=== PATIENT | male | born 1960 | race Caucasian/White ===

== ENCOUNTER 2018-11-24 13:58 | Inpatient (IN) | payer MEDICAID ==
[~2018-11-24] VITALS: Ht 180.3 cm; Wt 84.0 kg
[2018-11-24 14:10] VITALS: BP_SYST 87
--- NOTE | 2018-11-24 14:15 | NUR ---
Patient presented to ER with C/O black lesion to left internal cheek, S/C burning urination difficulty voiding. Patient A&Ox4, ambulatory to ER, arrived with , saudi arabian speaking only. Patient states he noticed black lesion inside cheek today, pain with urination x5 days. 1.5cm to inside left cheek, PT. denies pain, denies N/V/D. Patient states hx include: Dialysis, heart transplant 2008, HTN, neck blood clots.
--- NOTE | 2018-11-24 14:20 | NUR ---
Placed in room 6. Placed on comb machine operator, blood pressure machine and pulse oximeter. To gown for exam. Side rails up.
--- NOTE | 2018-11-24 14:25 | NUR ---
Patient placed on oxygen via NC per patient request
--- NOTE | 2018-11-24 14:35 | NUR ---
ER Dr. Martinez at bedside examining patient.
[2018-11-24] MEDS ORDERED: MIDO10TA PO (14:45)
[2018-11-24] MEDS ORDERED: ISMO20 PO (14:45)
[2018-11-24] MEDS ORDERED: MAGN400T10 PO (14:45)
[2018-11-24] MEDS ORDERED: LEVO25TA7 PO (14:45)
[2018-11-24] MEDS ORDERED: VITD400 PO (14:45)
[2018-11-24] MEDS ORDERED: TACR1CAP PO (14:45)
[2018-11-24] MEDS ORDERED: ESOM10SU PO (14:45)
[2018-11-24] MEDS ORDERED: ZOLP10TA6 PO (14:45)
[2018-11-24] MEDS ORDERED: FERR325T30 PO (14:45)
[2018-11-24] MEDS ORDERED: FEBU80TA PO (14:45)
[2018-11-24] MEDS ORDERED: LIP20 PO (14:45)
[2018-11-24] MEDS ORDERED: APIX5TAB4 PO (14:45)
[2018-11-24] MEDS ORDERED: OXYC-580 PO (14:45)
[2018-11-24] MEDS ORDERED: CALC667T5 PO (14:45)
[2018-11-24] MEDS ORDERED: DOCU250C14 PO (14:45)
[2018-11-24] MEDS ORDERED: EVER0.75 PO (14:45)
[2018-11-24] MEDS ORDERED: SERT50TA12 PO (14:45)
[2018-11-24] MEDS ORDERED: SENN8.6T19 PO (14:45)
[2018-11-24] MEDS ORDERED: FOLI-43 PO (14:45)
--- NOTE | 2018-11-24 14:46 | NUR ---
Medication reconciliation completed with information provided by list of medications provided by . Any prior medication reconciliation on file was reviewed and corrected.
[2018-11-24 15:14] LABS: BASOPHILS # (AUTO) 0.1 K/uL (0.0-0.2); BASOPHILS % (AUTO) 0.8 % (0.0-2.0); EOSINOPHILS # (AUTO) 0.2 K/uL (0.0-0.4); EOSINOPHILS % (AUTO) 2.2 % (0.0-4.0); HEMATOCRIT 37.1 % (36-54); HEMOGLOBIN 11.5 g/dL (14.0-18.0); LYMPHOCYTES # (AUTO) 0.6 K/uL (1.0-5.5); LYMPHOCYTES % (AUTO) 7.8 % (20.5-51.5); MEAN CORPUSCULAR HEMOGLOBIN 23 pg (27-31); MEAN CORPUSCULAR HGB CONC 31 % (32-36); MEAN CORPUSCULAR VOLUME 75 fL (79.0-98.0); MONOCYTES % (AUTO) 12.8 % (1.7-9.3); NEUTROPHILS # (AUTO) 5.7 K/uL (1.8-7.7); NEUTROPHILS % (AUTO) 76.4 % (40.0-70.0); PLATELET COUNT (AUTO) 159 K/uL (130-430); RED BLOOD CELL COUNT(AUTO) 4.96 MIL/uL (4.2-6.2); RED CELL DISTRIBUTION WIDTH 25.1 % (9.0-15.0); WHITE BLOOD COUNT (AUTO) 7.5 K/uL (4.8-10.8)
--- NOTE | 2018-11-24 15:14 | NUR ---
Radiology staff at bedside for portable x-ray
--- NOTE | 2018-11-24 15:30 | NUR ---
Report to Yuki URIOSTEGUI
[2018-11-24 15:32] LABS: INR 1.1 (0.80-1.20)
[2018-11-24 15:33] LABS: CREATININE 4.42 mg/dL (0.55-1.30); POTASSIUM 3.2 mmol/L (3.5-5.1)
[2018-11-24 15:35] LABS: BILIRUBIN,URINE 2+ (NEGATIVE); BLOOD, URINE 1+ (NEGATIVE); CLARITY/URINE HAZY (CLEAR); COLOR,URINE YELLOW (YELLOW); GLUCOSE,URINE NEGATIVE (NEGATIVE); KETONES,URINE 1+ (NEGATIVE); LEUKOCYTE ESTERASE ,URINE TRACE (NEGATIVE); NITRITE, URINE POSITIVE (NEGATIVE); PROTEIN URINE 2+ (NEGATIVE)
--- NOTE | 2018-11-24 15:35 | NUR ---
Patient resting comfortably on gurney. No acute distress noted at this time.
[2018-11-24 15:38] LABS: ALBUMIN 2.9 g/dL (3.4-4.8); TOTAL BILIRUBIN 0.5 mg/dL (0.0-1.0)
--- NOTE | 2018-11-24 16:12 | NUR ---
End of life care decisions discussed with patient by Dr. Martinez. Opportunity for questions and concerns addressed. Patient's code status is FULL CODE, paperwork completed and placed in chart.
[2018-11-24 16:30] LABS: MUCUS,URINE None Seen /LPF (None Seen); RBC,URINE 0-3 /HPF (0-3)
[2018-11-24 16:32] LABS: BACTERIA,URINE MODERATE /HPF (None Seen); URINE AMORPHOUS URATE 2+ /HPF (None Seen)
[2018-11-24] MEDS ORDERED: DOCUSATE SODIUM 250 MG CAPSULE PO PRN (17:00)
[2018-11-24] MEDS ORDERED: oxyCODONE HCL 5 MG TABLET PO PRN (17:00)
--- NOTE | 2018-11-24 17:03 | NUR ---
Patient will be admitted to care of DR. GRADY. Admitted to TELEMETRY unit. Will go to room 135. Summary report printed. Report will be given at bedside.
[2018-11-24] MEDS ORDERED: POTASSIUM CHLORIDE 20 MEQ/PKT PACKET PO ONE (17:30)
--- NOTE | 2018-11-24 17:35 | NUR ---
Routine Patient transferred to unit in stable condition. at bedside.
[2018-11-24 17:40] VITALS: BP_SYST 96
--- NOTE | 2018-11-24 18:00 | NUR ---
Nephro consult called: for Dr. Perez (Dr. Mathew security control assessor), regarding ESRD and CHF, ordered by Dr. Holder, spoke with Katrina.
--- NOTE | 2018-11-24 18:04 | NUR ---
Ina consult called: for Dr. Weir (Dr. Carr telephone betting clerk), regarding s/p heart transplant, ordered by Dr. Holder, spoke with Asiya.
[2018-11-24] MEDS: CALCIUM ACETATE 667 MG CAP PO SCH (18:43)
[2018-11-24] MEDS: cefTRIAXone 1 GM in D5W 50 ML IV SCH (18:43)
--- NOTE | 2018-11-24 19:30 | NUR ---
Bedside report obtained from day shift nurse. Pt is fully awake and alert. No c/o pain or discomfort and no acute distress noted at this time. Saline lock in LFA is without any signs of infiltration. Fall and safety precautions are in place. Call light is with pt and bed alarm is on. Pt was instructed to call for assistance as needed and pt verbalized understanding.
[2018-11-24 20:00] VITALS: BP_SYST 118
[2018-11-24] MEDS ORDERED: cefTRIAXone 1 GM in D5W 50 ML IV SCH (20:00)
[2018-11-24] MEDS: SENNOSIDES 8.6 MG TABLET PO SCH (20:17)
[2018-11-24] MEDS: TACROLIMUS ANHYDROUS 0.5 MG CAPSULE (PROGRAF) PO SCH (20:18)
[2018-11-24] MEDS: ATORVASTATIN 20 MG TABLET PO SCH (20:20)
[2018-11-24] MEDS: MAGNESIUM CHLORIDE 64 MG TABLET.DR PO SCH (20:20)
--- NOTE | 2018-11-24 20:20 | NUR ---
Pt c/o pain in both legs. Oxycodone IR 7.5mg was given po.
[2018-11-24] MEDS: APIXABAN 2.5 MG TABLET PO SCH (20:22)
[2018-11-24] MEDS ORDERED: ISOSORBIDE MONONITRATE 30 MG TAB.ER.24H PO SCH (21:00)
[2018-11-24] MEDS: ZORTRESS 0.75 MG PO SCH (21:00)
[2018-11-24] MEDS: ZOLPIDEM TARTRATE 5 MG TABLET PO PRN (22:40)
--- NOTE | 2018-11-24 22:40 | NUR ---
Pt c/o difficulty sleeping and requested a sleeping pill. Ambien 10mg was given po as ordered by .
[2018-11-24 23:49] LABS: URIC ACID 2.5 mg/dL (2.4-7.0)
--- NOTE | 2018-11-25 00:01 | NUR ---
Elevated Troponin of 0.[address] Carr and no new orders given. Dr. Carr stated Dr. Weir will see pt in AM. Pt is asymptomatic. electrical lineman is showing SR.
[2018-11-25 01:04] VITALS: BP_SYST 100
--- NOTE | 2018-11-25 02:00 | NUR ---
Pt is seeping without any distress noted. Fall and safety precautions are in place.
--- NOTE | 2018-11-25 04:00 | NUR ---
Pt is seeping comfortably in bed without any distress noted. Fall and safety precautions are in place.
[2018-11-25] MEDS: LEVOTHYROXINE SODIUM 0.075 MG TABLET PO SCH (06:19)
--- NOTE | 2018-11-25 06:34 | NUR ---
Pt is awake and resting comfortably in bed. Call light is with pt and bed is in the lowest and locked positions. All pt's needs were attended to. Will endorse to day shift nurse.
[2018-11-25 08:00] VITALS: BP_SYST 103
--- NOTE | 2018-11-25 08:00 | NUR ---
OPENING NOTE: RECEIVED REPORT FROM NOC RN. PATIENT IS RESTING IN BED WITH HOB ELEVATED. PATIENT IS RESTING WITH EYES CLOSED, AROUSABLE TO VERBAL RESPONSE. PATIENT IS ON 2L O2 NC AND SATURATING WITHIN NORMAL LIMITS. NO ACUTE SIGNS OF RESP DISTRESS, NO SOB. BREATHING EVEN AND UNLABORED. IV INTACT AND PATENT, NO REDNESS/SWELLING TO SITE. ALL NEEDS MET AT THIS TIME. BED AT LOWEST POSITION, CALL LIGHT IN REACH. CONTINUE TO MONITOR.
[2018-11-25 08:18] LABS: BASOPHILS # (AUTO) 0.2 K/uL (0.0-0.2); BASOPHILS % (AUTO) 2.5 % (0.0-2.0); EOSINOPHILS # (AUTO) 0.2 K/uL (0.0-0.4); EOSINOPHILS % (AUTO) 2.7 % (0.0-4.0); HEMOGLOBIN 11.1 g/dL (14.0-18.0); LYMPHOCYTES # (AUTO) 0.7 K/uL (1.0-5.5); LYMPHOCYTES % (AUTO) 9.3 % (20.5-51.5); MEAN CORPUSCULAR HEMOGLOBIN 23 pg (27-31); MEAN CORPUSCULAR HGB CONC 31 % (32-36); MEAN CORPUSCULAR VOLUME 76 fL (79.0-98.0); MONOCYTES % (AUTO) 13.8 % (1.7-9.3); NEUTROPHILS # (AUTO) 5.5 K/uL (1.8-7.7); NEUTROPHILS % (AUTO) 71.7 % (40.0-70.0); PLATELET COUNT (AUTO) 144 K/uL (130-430); RED BLOOD CELL COUNT(AUTO) 4.76 MIL/uL (4.2-6.2); RED CELL DISTRIBUTION WIDTH 26.1 % (9.0-15.0); WHITE BLOOD COUNT (AUTO) 7.6 K/uL (4.8-10.8)
[2018-11-25 08:33] LABS: ALBUMIN 2.7 g/dL (3.4-4.8); CALCIUM 8.8 mg/dL (8.4-11.0); CREATININE 5.2 mg/dL (0.55-1.30); POTASSIUM 4.5 mmol/L (3.5-5.1); TOTAL BILIRUBIN 0.5 mg/dL (0.0-1.0)
[2018-11-25] MEDS: FOLIC ACID 1 MG TABLET PO SCH (08:42)
[2018-11-25] MEDS: PANTOPRAZOLE SODIUM 40 MG TAB PO SCH (08:42)
[2018-11-25] MEDS: TACROLIMUS ANHYDROUS 0.5 MG CAPSULE (PROGRAF) PO SCH ×2 (08:42→21:31)
[2018-11-25] MEDS: CALCIUM ACETATE 667 MG CAP PO SCH ×3 (08:42→17:06)
[2018-11-25] MEDS: CHOLECALCIFEROL (VITAMIN D-3) 400 UNIT TABLET PO SCH (08:42)
[2018-11-25] MEDS: MAGNESIUM CHLORIDE 64 MG TABLET.DR PO SCH ×3 (08:42→21:31)
[2018-11-25] MEDS: SENNOSIDES 8.6 MG TABLET PO SCH ×2 (08:42→21:31)
[2018-11-25] MEDS: SERTRALINE HCL 50 MG TABLET PO SCH (08:42)
[2018-11-25] MEDS: APIXABAN 2.5 MG TABLET PO SCH ×2 (08:43→21:35)
[2018-11-25] MEDS: ZORTRESS 0.75 MG PO SCH ×2 (09:00→21:33)
[2018-11-25] MEDS ORDERED: MIDODRINE HCL 5 MG TABLET (PROAMATINE) PO SCH (09:00)
[2018-11-25] MEDS ORDERED: MIDODRINE HCL 5 MG TABLET (PROAMATINE) PO ONE (10:00)
--- NOTE | 2018-11-25 12:00 | NUR ---
ROUNDING: NO CHANGE IN STATUS. ALL NEEDS MET. CONTINUE TO MONITOR.
[2018-11-25 12:34] VITALS: BP_SYST 118
[2018-11-25 13:01] LABS: SOURCE/TYPE ,BODY FLUID PLEURAL
[2018-11-25 13:02] LABS: BF APPEARANCE UNSPUN HAZY (CLEAR); BODY FLUID COLOR YELLOW (LT YELLOW); BODY FLUID SOURCE/ TYPE PLEURAL; BODY FLUID TOTAL VOLUME 1675 mL
[2018-11-25 14:02] LABS: LYMPHOCYTES, BODY FLUID 63 %; RBC, BODY FLUID 603 /uL; WBC, BODY FLUID 214 /uL
[2018-11-25 14:03] LABS: MONOCYTES,BODY FLUID 7 %
[2018-11-25 16:30] VITALS: BP_SYST 101
[2018-11-25] MEDS: cefTRIAXone 1 GM in D5W 50 ML IV SCH (17:06)
--- NOTE | 2018-11-25 19:00 | NUR ---
CLOSING NOTE: PATIENT LAYING IN BED WITH HOB ELEVATED. AAOX4, VERBALLY RESPONSIVE WITH CLEAR SPEECH. PATIENT IS ON 2L O2 NC AND SATURATING WITHIN NORMAL LIMITS. NO ACUTE SIGNS OF RESP DISTRESS, NO SOB. BREATHING EVEN AND UNLABORED. IV INTACT AND PATENT, NO REDNESS/SWELLING/PAIN TO SITE. BED AT LOWEST POSITION, CALL LIGHT IN REACH. WILL ENDORSE PLAN OF CARE TO NOC RN.
--- NOTE | 2018-11-25 19:15 | NUR ---
Pt was received lying in bed sleeping without any distress noted. O2 is on at 2L/min per NC. Pt's is sitting at the bedside. Saline lock in LFA is without any signs of infiltration. Fall and safety precautions are in place. Call light is with pt and bed is in the lowest and locked positions.
[2018-11-25 19:16] LABS: BODY FLUID GLUCOSE 96 mg/dL
[2018-11-25 20:00] VITALS: BP_SYST 104
[2018-11-25] MEDS: MIDODRINE HCL 5 MG TABLET (PROAMATINE) PO SCH (21:30)
--- NOTE | 2018-11-25 21:30 | NUR ---
Pt is resting quietly in bed. No c/o pain or discomfort. Fall and safety precautions are in place.
[2018-11-25] MEDS: ATORVASTATIN 20 MG TABLET PO SCH (21:31)
[2018-11-25] MEDS: ZOLPIDEM TARTRATE 5 MG TABLET PO PRN (23:51)
--- NOTE | 2018-11-25 23:51 | NUR ---
Ambien 10mg was given po per pt's request for c/o insomnia. Call light is with pt and bed is in the lowest and locked positions. Pt was instructed to call for assistance as needed and pt verbalized understanding.
[2018-11-26] VITALS: BP_SYST 103
--- NOTE | 2018-11-26 02:30 | NUR ---
Pt is seeping comfortably in bed without any distress noted. Fall and safety precautions are in place.
--- NOTE | 2018-11-26 04:30 | NUR ---
Pt is sleeping without any distress noted. Fall and safety precautions are in place.
[2018-11-26] MEDS: LEVOTHYROXINE SODIUM 0.075 MG TABLET PO SCH (06:18)
[2018-11-26 06:38] LABS: CALCIUM 9.2 mg/dL (8.4-11.0); CREATININE 6.14 mg/dL (0.55-1.30); POTASSIUM 4.4 mmol/L (3.5-5.1); THYROID STIMULATING HORMONE 2.1 uIu/mL (0.34-4.82)
--- NOTE | 2018-11-26 06:49 | NUR ---
Pt is awake and resting comfortably in bed. All pt's needs were attended to. IV site in LFA is without any signs of infiltration. Will endorse to day shift nurse.
--- NOTE | 2018-11-26 07:10 | NUR ---
sbar report received at the bedside. patient aaox 4. speaks chinese and understood bit of icelandic. ambulatory. breathing even and unlabored. has oxygen at 2lnc. abdomen soft and non distended. has iv access on the left forearm #20 saline lock dry/intact. has left upper chest permacath in placed. dry/intact. no skin breakdown noted. bed low position, locked and alarmed. call lights within reach. instructed to call for assistance. still with school lunch monitor in placed sinus rththm 80. no pain nor acute distress noted.
[2018-11-26 07:44] VITALS: BP_SYST 123
[2018-11-26 08:04] LABS: HEMATOCRIT 38.2 % (36-54); HEMOGLOBIN 11.7 g/dL (14.0-18.0); MEAN CORPUSCULAR HEMOGLOBIN 23 pg (27-31); MEAN CORPUSCULAR HGB CONC 31 % (32-36); MEAN CORPUSCULAR VOLUME 75 fL (79.0-98.0); PLATELET COUNT (AUTO) 170 K/uL (130-430); RED BLOOD CELL COUNT(AUTO) 5.07 MIL/uL (4.2-6.2); RED CELL DISTRIBUTION WIDTH 24.9 % (9.0-15.0); WHITE BLOOD COUNT (AUTO) 8.3 K/uL (4.8-10.8)
--- NOTE | 2018-11-26 08:30 | NUR ---
assisted to the bathroom. continue to monitor patients status.
--- NOTE | 2018-11-26 09:00 | NUR ---
medication due given. made comfortable.
[2018-11-26] MEDS: MIDODRINE HCL 5 MG TABLET (PROAMATINE) PO SCH (09:16)
[2018-11-26] MEDS: CALCIUM ACETATE 667 MG CAP PO SCH (09:16)
[2018-11-26] MEDS: PANTOPRAZOLE SODIUM 40 MG TAB PO SCH (09:17)
[2018-11-26] MEDS: SENNOSIDES 8.6 MG TABLET PO SCH (09:17)
[2018-11-26] MEDS: SERTRALINE HCL 50 MG TABLET PO SCH (09:17)
[2018-11-26] MEDS: FOLIC ACID 1 MG TABLET PO SCH (09:17)
[2018-11-26] MEDS: APIXABAN 2.5 MG TABLET PO SCH (09:20)
[2018-11-26] MEDS: TACROLIMUS ANHYDROUS 0.5 MG CAPSULE (PROGRAF) PO SCH (09:24)
[2018-11-26] MEDS: MAGNESIUM CHLORIDE 64 MG TABLET.DR PO SCH (09:27)
[2018-11-26] MEDS: CHOLECALCIFEROL (VITAMIN D-3) 400 UNIT TABLET PO SCH (09:27)
[2018-11-26] MEDS: ZORTRESS 0.75 MG PO SCH (09:31)
[2018-11-26] MEDS ORDERED: ALBUMIN HUMAN 25% 100 ML IV ONE (09:45)
--- NOTE | 2018-11-26 10:00 | NUR ---
had dialysis procedure scheduled today.
[2018-11-26 11:18] VITALS: BP_SYST 110
[2018-11-26 12:17] LABS: BAND % (MANUAL) 2 % (0-6); BASOPHILS % (MANUAL) 0 % (0-2); EOSINOPHILS % (MANUAL) 2 % (0-7); LYMPHOCYTES % (MANUAL) 13 % (20-46); MONOCYTES % (MANUAL) 18 % (0-11)
--- NOTE | 2018-11-26 12:30 | NUR ---
had lunch tray at the bedside. made comfortable.
--- NOTE | 2018-11-26 15:04 | NUR ---
patient resting at the bedside. no complained at this time.
[2018-11-26 15:18] LABS: NEUTROPHIL, BODY FLUID 30 %
--- NOTE | 2018-11-26 15:46 | NUR ---
awaiting for dr silvestre to come and see the patient.
--- NOTE | 2018-11-26 17:14 | NUR ---
dr silvestre came and discharge patient. no prescription given. continue home previous medication and see the pcp, wireless telegrapher and photographer news.
[2018-11-26 17:24] VITALS: BP_SYST 128
[2018-11-26 17:30] VITALS: BP_SYST 128
--- NOTE | 2018-11-26 18:00 | NUR ---
monitor tech removed. scdh i d band and iv access removed. patient has left chest permacath. dry/intact.
--- NOTE | 2018-11-26 18:15 | NUR ---
instructed regarding the care of permacath for dialysis. estephania and patient understands.
--- NOTE | 2018-11-26 18:24 | NUR ---
patient left in juan condition via wheelchair. accompanied by Jojo Muñoz and named Chayito. discharged instruction given and explained one by one the medication and each indication, dosages, frequency and sidie effects. return follow up with primary care doctor and senior label specialist and tongue and quarter stitcher md. discharge instruction signed and given a copy.
--- NOTE | 2018-11-26 18:24 | NUR ---
left in stable condition. vitals signs stable and afebrile.
== END 2018-11-26 18:24 | disposition home or self-care (01) | DRG 194 ==
LOC: SED 13:58 → STU 16:51
PROVIDERS: ADMIT Internal Medicine; ATTEND Internal Medicine
PROC: 0W993ZZ Drainage of Right Pleural Cavity, Percutaneous Approach (ICD-10-PCS; principal; 2018-11-24)
PROC: 5A1D70Z Performance of Urinary Filtration, Intermittent, Less than 6 Hours Per Day (ICD-10-PCS; 2018-11-26)
DX: I13.2 Hypertensive heart and chronic kidney disease with heart failure and with stage 5 chronic kidney disease, or end stage renal disease (principal); J91.8 Pleural effusion in other conditions classified elsewhere; Z94.1 Heart transplant status; N18.6 End stage renal disease; I42.0 Dilated cardiomyopathy; E44.1 Mild protein-calorie malnutrition; K72.90 Hepatic failure, unspecified without coma; K74.60 Unspecified cirrhosis of liver; E78.5 Hyperlipidemia, unspecified; G89.4 Chronic pain syndrome; D64.9 Anemia, unspecified; I50.43 Acute on chronic combined systolic (congestive) and diastolic (congestive) heart failure; I34.0 Nonrheumatic mitral (valve) insufficiency; M10.9 Gout, unspecified; N39.0 Urinary tract infection, site not specified; Z79.01 Long term (current) use of anticoagulants; Z82.49 Family history of ischemic heart disease and other diseases of the circulatory system; Z86.711 Personal history of pulmonary embolism; Z87.891 Personal history of nicotine dependence; Z99.2 Dependence on renal dialysis; Z79.899 Other long term (current) drug therapy; Z68.25 Body mass index [BMI] 25.0-25.9, adult
CPT/HCPCS: 32555; 36415; 71045; 80048; 80053; 80061; 81000-TC; 82947-TC; 83605; 83880; 84157-TC; 84443-TC; 84484; 84550-TC; 85007; 85025; 85027; 85610-TC; 85730-TC; 87040-TC; 87070-TC; 87081; 87086; 87116; 88108; 88305; 89051-TC; 89060-TC; 90935; 93005; 93306; 99291; C1729; G0378; J0696; J7030; J7050; J7060; J7507

== ENCOUNTER 2018-12-07 00:49 | Inpatient (IN) | payer MEDICAID ==
[2018-12-07] VITALS (7 sets, daily range): BP systolic 100–119
[~2018-12-07] VITALS: Ht 180.3 cm; Wt 83.0 kg
[~2018-12-07 00:49] MED LIST: APIX5TAB4 PO; CALC667T5 PO; DOCU250C14 PO; ESOM10SU PO; EVER0.75 PO; FEBU80TA PO; FERR325T30 PO; FOLI-43 PO; LEVO25TA7 PO; LIP20 PO; MAGN400T10 PO; MIDO10TA PO; OXYC-580 PO; SENN8.6T19 PO; SERT50TA12 PO; TACR1CAP PO; VITD400 PO; ZOLP10TA6 PO
[2018-12-07] MEDS ORDERED: IPRATROPIUM/ALBUTEROL SULFATE 3 ML AMPUL.NEB (DUONEB) INH ONE (01:15)
[2018-12-07] MEDS ORDERED: FUROSEMIDE 100 MG/10 ML VIAL IVP ONE (01:15)
[2018-12-07] MEDS ORDERED: FURO80TA86 PO (01:27)
[2018-12-07] MEDS ORDERED: ISOS30TA6 PO (01:28)
[2018-12-07] MEDS ORDERED: MAGN27TA2 PO (01:32)
[2018-12-07] MEDS ORDERED: FEBU40TA PO (01:33)
[2018-12-07 02:08] LABS: BASOPHILS # (AUTO) 0.1 K/uL (0.0-0.2); EOSINOPHILS # (AUTO) 0.2 K/uL (0.0-0.4); EOSINOPHILS % (AUTO) 2.3 % (0.0-4.0); HEMOGLOBIN 12.1 g/dL (14.0-18.0); LYMPHOCYTES # (AUTO) 0.7 K/uL (1.0-5.5); NEUTROPHILS # (AUTO) 5.6 K/uL (1.8-7.7); PLATELET COUNT (AUTO) 117 K/uL (130-430); RED CELL DISTRIBUTION WIDTH 26.1 % (9.0-15.0)
[2018-12-07 02:09] LABS: INR 1.1 (0.80-1.20); PROTHROMBIN TIME 11.1 SECS (9.5-12.5)
[2018-12-07] MEDS ORDERED: DOXYCYCLINE HYCLATE 100 MG CAPSULE PO ONE (02:30)
[2018-12-07 02:35] LABS: BASOPHILS % (AUTO) 1.4 % (0.0-2.0); CALCIUM 8.5 mg/dL (8.4-11.0); CREATININE 6.34 mg/dL (0.55-1.30); HEMATOCRIT 38.9 % (36-54); LYMPHOCYTES % (AUTO) 9.6 % (20.5-51.5); MEAN CORPUSCULAR HEMOGLOBIN 24 pg (27-31); MEAN CORPUSCULAR HGB CONC 31 % (32-36); MEAN CORPUSCULAR VOLUME 77 fL (79.0-98.0); MONOCYTES # (AUTO) 0.8 K/uL (0.0-1.0); MONOCYTES % (AUTO) 11.3 % (1.7-9.3); NEUTROPHILS % (AUTO) 75.4 % (40.0-70.0); POTASSIUM 3.8 mmol/L (3.5-5.1); RED BLOOD CELL COUNT(AUTO) 5.05 MIL/uL (4.2-6.2); WHITE BLOOD COUNT (AUTO) 7.4 K/uL (4.8-10.8)
[2018-12-07 02:40] LABS: ALBUMIN 2.6 g/dL (3.4-4.8); TOTAL BILIRUBIN 0.5 mg/dL (0.0-1.0)
[2018-12-07] MEDS ORDERED: DOXYCYCLINE HYCLATE 100 MG CAPSULE ONE (02:56)
[2018-12-07] MEDS ORDERED: NITROGLYCERIN 0.4 MG TAB.SUBL SL ONE (03:00)
[2018-12-07] MEDS ORDERED: DOCUSATE SODIUM 100 MG/10 ML UDC PO PRN (03:15)
[2018-12-07] MEDS ORDERED: HYDROcodone/ACETAMIN 7.5-325 MG TAB PO PRN (03:15)
[2018-12-07] MEDS ORDERED: ACETAMINOPHEN 500 MG TABLET PO PRN (03:15)
[2018-12-07] MEDS ORDERED: KETOROLAC TROMETHAMINE 30 MG VIAL IVP ONE (03:15)
[2018-12-07] MEDS ORDERED: ONDANSETRON HCL 4 MG/2 ML VIAL IVP PRN (03:15)
[2018-12-07] MEDS ORDERED: MORPHINE 2 MG/ML INJ. SYRINGE IVP PRN (03:15)
[2018-12-07] MEDS ORDERED: ZOLPIDEM TARTRATE 5 MG TABLET PO PRN (03:30)
[2018-12-07] MEDS ORDERED: HEPARIN SODIUM,PORCINE 5000 UNITS/ML VIAL SUBCUT ONE (03:30)
[2018-12-07] MEDS ORDERED: NITROGLYCERIN 0.4 MG TAB.SUBL SL PRN (03:30)
[2018-12-07] MEDS ORDERED: IPRATROPIUM/ALBUTEROL SULFATE 3 ML AMPUL.NEB (DUONEB) INH PRN ×2 (03:45→06:15)
[2018-12-07] MEDS: LEVOTHYROXINE SODIUM 0.075 MG TABLET PO SCH (06:58)
[2018-12-07] MEDS: IPRATROPIUM/ALBUTEROL SULFATE 3 ML AMPUL.NEB (DUONEB) INH SCH ×5 (07:09→23:55)
[2018-12-07 07:10] LABS: FREE T4 (FREE THYROXINE) 0.9 ng/dl (0.8-1.5); PHOSPHORUS 5.6 mg/dL (2.7-4.5); THYROID STIMULATING HORMONE 3.38 uIu/mL (0.36-3.74)
[2018-12-07] MEDS: ASPIRIN 81 MG TAB.CHEW PO SCH (09:00)
[2018-12-07] MEDS: APIXABAN 2.5 MG TABLET PO SCH ×2 (09:00→21:00)
[2018-12-07] MEDS: FOLIC ACID 1 MG TABLET PO SCH (10:15)
[2018-12-07] MEDS: SERTRALINE HCL 50 MG TABLET PO SCH (10:15)
[2018-12-07] MEDS: PANTOPRAZOLE SODIUM 40 MG TAB PO SCH (10:15)
[2018-12-07] MEDS ORDERED: NON-FORMULARY MEDICATION (Febuxostat (Uloric) 40 MG) PO SCH (11:15)
[2018-12-07] MEDS: TACROLIMUS ANHYDROUS 0.5 MG CAPSULE (PROGRAF) PO SCH ×2 (12:06→20:56)
[2018-12-07] MEDS: [UNRECOGNIZED DRUG - OTHER] PO SCH ×2 (12:06→20:57)
[2018-12-07 14:30] LABS: BODY FLUID SOURCE/ TYPE PLEURAL; SOURCE/TYPE ,BODY FLUID PLEURAL
[2018-12-07 14:31] LABS: APPEARANCE,SPUN,BODY FLUID HAZY (CLEAR)
[2018-12-07 14:32] LABS: BF APPEARANCE UNSPUN HAZY (CLEAR); BODY FLUID COLOR LT YELLOW (LT YELLOW); BODY FLUID TOTAL VOLUME 1750 mL
[2018-12-07 14:33] LABS: LYMPHOCYTES, BODY FLUID 42 %; NEUTROPHIL, BODY FLUID 58 %; RBC, BODY FLUID 161 /uL; WBC, BODY FLUID 64 /uL
[2018-12-07] MEDS: PIPERACILLIN/TAZO 2.25G/DEX-IS 50 ML IV SCH ×2 (14:41→20:57)
[2018-12-07 14:50] LABS: TOTAL IRON BIND. CAPACITY 254 ug/dL (250-450)
[2018-12-07 17:41] LABS: BODY FLUID GLUCOSE 113 mg/dL; BODY FLUID TOTAL PROTEIN 2.4 g/dL
[2018-12-07] MEDS: ATORVASTATIN 20 MG TABLET PO SCH (20:56)
[2018-12-08 00:22] VITALS: BP_SYST 97
[2018-12-08] MEDS: IPRATROPIUM/ALBUTEROL SULFATE 3 ML AMPUL.NEB (DUONEB) INH SCH ×6 (03:00→23:35)
[2018-12-08] MEDS: PIPERACILLIN/TAZO 2.25G/DEX-IS 50 ML IV SCH ×3 (05:51→22:46)
[2018-12-08] MEDS: LEVOTHYROXINE SODIUM 0.075 MG TABLET PO SCH (05:52)
[2018-12-08 07:11] LABS: CALCIUM 8.7 mg/dL (8.4-11.0); PHOSPHORUS 7.1 mg/dL (2.7-4.5); POTASSIUM 4.1 mmol/L (3.5-5.1)
[2018-12-08 07:14] LABS: CREATININE 7.69 mg/dL (0.55-1.30)
[2018-12-08 07:28] LABS: HEMATOCRIT 39.5 % (36-54); HEMOGLOBIN 12.1 g/dL (14.0-18.0); MEAN CORPUSCULAR HEMOGLOBIN 24 pg (27-31); MEAN CORPUSCULAR HGB CONC 31 % (32-36); MEAN CORPUSCULAR VOLUME 78 fL (79.0-98.0); PLATELET COUNT (AUTO) 98 K/uL (130-430); RED BLOOD CELL COUNT(AUTO) 5.09 MIL/uL (4.2-6.2); RED CELL DISTRIBUTION WIDTH 25.9 % (9.0-15.0); WHITE BLOOD COUNT (AUTO) 6.2 K/uL (4.8-10.8)
[2018-12-08] MEDS: PANTOPRAZOLE SODIUM 40 MG TAB PO SCH (08:20)
[2018-12-08] MEDS: ASPIRIN 81 MG TAB.CHEW PO SCH (08:20)
[2018-12-08] MEDS: SERTRALINE HCL 50 MG TABLET PO SCH (08:20)
[2018-12-08] MEDS: APIXABAN 2.5 MG TABLET PO SCH ×2 (08:22→20:36)
[2018-12-08] MEDS: FOLIC ACID 1 MG TABLET PO SCH (08:23)
[2018-12-08] MEDS: [UNRECOGNIZED DRUG - OTHER] PO SCH ×2 (08:23→20:40)
[2018-12-08] MEDS: TACROLIMUS ANHYDROUS 0.5 MG CAPSULE (PROGRAF) PO SCH ×2 (08:23→20:39)
[2018-12-08] MEDS: MIDODRINE HCL 5 MG TABLET (PROAMATINE) PO PRN (09:25)
[2018-12-08 09:39] LABS: BASOPHILS % (MANUAL) 0 % (0-2); EOSINOPHILS % (MANUAL) 2 % (0-7); LYMPHOCYTES % (MANUAL) 12 % (20-46); MONOCYTES % (MANUAL) 9 % (0-11)
[2018-12-08] MEDS ORDERED: ALTEPLASE 2 MG VIAL MC ONE (10:15)
[2018-12-08] MEDS ORDERED: HEPARIN SODIUM,PORCINE 5000 UNITS/ML VIAL MC ONE (10:15)
[2018-12-08 10:57] VITALS: BP_SYST 108
[2018-12-08 12:00] VITALS: BP_SYST 100
[2018-12-08 15:15] LABS: FOLATE (FOLIC ACID) >20.0 ng/mL (>3.0)
[2018-12-08 15:22] VITALS: BP_SYST 110
[2018-12-08 20:00] VITALS: BP_SYST 99
[2018-12-08] MEDS: ATORVASTATIN 20 MG TABLET PO SCH (20:35)
[2018-12-08 22:54] VITALS: BP_SYST 100
[2018-12-09 01:10] VITALS: BP_SYST 91
[2018-12-09] MEDS: IPRATROPIUM/ALBUTEROL SULFATE 3 ML AMPUL.NEB (DUONEB) INH SCH ×4 (03:00→15:00)
[2018-12-09] MEDS: LEVOTHYROXINE SODIUM 0.075 MG TABLET PO SCH (06:26)
[2018-12-09] MEDS: PIPERACILLIN/TAZO 2.25G/DEX-IS 50 ML IV SCH (06:26)
[2018-12-09] MEDS: FOLIC ACID 1 MG TABLET PO SCH (09:12)
[2018-12-09] MEDS: TACROLIMUS ANHYDROUS 0.5 MG CAPSULE (PROGRAF) PO SCH (09:12)
[2018-12-09] MEDS: PANTOPRAZOLE SODIUM 40 MG TAB PO SCH (09:12)
[2018-12-09] MEDS: SERTRALINE HCL 50 MG TABLET PO SCH (09:13)
[2018-12-09] MEDS: ASPIRIN 81 MG TAB.CHEW PO SCH (09:13)
[2018-12-09] MEDS: APIXABAN 2.5 MG TABLET PO SCH (09:16)
[2018-12-09] MEDS: [UNRECOGNIZED DRUG - OTHER] PO SCH (09:17)
[2018-12-09] MEDS: MIDODRINE HCL 5 MG TABLET (PROAMATINE) PO PRN (10:32)
[2018-12-09 12:22] VITALS: BP_SYST 99
[2018-12-09] MEDS ORDERED: HEPARIN SODIUM,PORCINE 5000 UNITS/ML VIAL IVP ONE (16:00)
[2018-12-09 16:10] VITALS: BP_SYST 106
[2018-12-09] MEDS ORDERED: HEPARIN SODIUM,PORCINE 5000 UNITS/ML VIAL ONE (16:17)
[2018-12-09 18:16] VITALS: BP_SYST 103
[2018-12-10 10:58] LABS: SOLUBLE TRANSFERRIN RECEPTOR 29.1 nmol/L (12.2-27.3)
== END 2018-12-09 19:05 | disposition home or self-care (01) | DRG 190 ==
LOC: SED 00:49 → STU 02:46 → SMU 12-09 10:49
PROVIDERS: ADMIT Family Medicine; ATTEND Family Medicine
PROC: 5A1D70Z Performance of Urinary Filtration, Intermittent, Less than 6 Hours Per Day (ICD-10-PCS; 2018-12-07)
PROC: 0W993ZZ Drainage of Right Pleural Cavity, Percutaneous Approach (ICD-10-PCS; principal; 2018-12-08)
PROC: 5A1D70Z Performance of Urinary Filtration, Intermittent, Less than 6 Hours Per Day (ICD-10-PCS; 2018-12-08)
PROC: 5A1D70Z Performance of Urinary Filtration, Intermittent, Less than 6 Hours Per Day (ICD-10-PCS; 2018-12-09)
DX: I21.A1 Myocardial infarction type 2 (principal); N17.0 Acute kidney failure with tubular necrosis; J69.0 Pneumonitis due to inhalation of food and vomit; E43 Unspecified severe protein-calorie malnutrition; D68.59 Other primary thrombophilia; I13.2 Hypertensive heart and chronic kidney disease with heart failure and with stage 5 chronic kidney disease, or end stage renal disease; I50.43 Acute on chronic combined systolic (congestive) and diastolic (congestive) heart failure; I42.9 Cardiomyopathy, unspecified; J91.8 Pleural effusion in other conditions classified elsewhere; D69.6 Thrombocytopenia, unspecified; N18.6 End stage renal disease; I34.0 Nonrheumatic mitral (valve) insufficiency; R73.9 Hyperglycemia, unspecified; E03.9 Hypothyroidism, unspecified; D63.8 Anemia in other chronic diseases classified elsewhere; I45.81 Long QT syndrome; E78.5 Hyperlipidemia, unspecified; K74.60 Unspecified cirrhosis of liver; M10.9 Gout, unspecified; Z86.718 Personal history of other venous thrombosis and embolism; Z86.711 Personal history of pulmonary embolism; Z79.899 Other long term (current) drug therapy; Z99.2 Dependence on renal dialysis; Z82.49 Family history of ischemic heart disease and other diseases of the circulatory system; Z94.1 Heart transplant status; Z79.01 Long term (current) use of anticoagulants
CPT/HCPCS: 32555; 36415; 71045; 76604; 80048; 80053; 80061; 82150-TC; 82607; 82746; 82947-TC; 83036; 83540-TC; 83550-TC; 83605; 83690-TC; 83735-TC; 83880; 84100-TC; 84157-TC; 84238; 84439; 84443-TC; 84484; 85007; 85025; 85027; 85044-TC; 85610-TC; 85730-TC; 87040-TC; 87070-TC; 87081; 87116; 88108; 89051-TC; 89060-TC; 90935; 90937; 93005; 94640; 94760; 96374; 96375; 99285; C1729; G0378; J1644; J1885; J1940; J2270; J2543; J2997; J7030; J7507; J7620

== ENCOUNTER 2018-12-21 06:19 | Inpatient (IN) | payer MEDICAID ==
[2018-12-21] VITALS (14 sets, daily range): BP systolic 104–130
[~2018-12-21] VITALS: Ht 177.8 cm; Wt 87.1 kg
[~2018-12-21 06:19] MED LIST changes: +FEBU40TA PO; -FEBU80TA PO; +FURO80TA86 PO; +ISOS30TA6 PO; +MAGN27TA2 PO; -MAGN400T10 PO
[2018-12-21 07:23] LABS: BASOPHILS % (AUTO) 0.4 % (0.0-2.0); EOSINOPHILS # (AUTO) 0.2 K/uL (0.0-0.4); EOSINOPHILS % (AUTO) 2.9 % (0.0-4.0); HEMATOCRIT 39.5 % (36-54); HEMOGLOBIN 12.2 g/dL (14.0-18.0); LYMPHOCYTES # (AUTO) 0.7 K/uL (1.0-5.5); LYMPHOCYTES % (AUTO) 10.1 % (20.5-51.5); MEAN CORPUSCULAR HEMOGLOBIN 24 pg (27-31); MEAN CORPUSCULAR HGB CONC 31 % (32-36); MEAN CORPUSCULAR VOLUME 78 fL (79.0-98.0); MONOCYTES # (AUTO) 0.9 K/uL (0.0-1.0); MONOCYTES % (AUTO) 13.8 % (1.7-9.3); NEUTROPHILS # (AUTO) 4.8 K/uL (1.8-7.7); NEUTROPHILS % (AUTO) 72.8 % (40.0-70.0); PLATELET COUNT (AUTO) 156 K/uL (130-430); RED BLOOD CELL COUNT(AUTO) 5.08 MIL/uL (4.2-6.2); RED CELL DISTRIBUTION WIDTH 24.3 % (9.0-15.0); WHITE BLOOD COUNT (AUTO) 6.6 K/uL (4.8-10.8)
[2018-12-21 07:39] LABS: CALCIUM 9.2 mg/dL (8.4-11.0); INR 1.1 (0.80-1.20); POTASSIUM 3.8 mmol/L (3.5-5.1); PROTHROMBIN TIME 11.2 SECS (9.5-12.5)
[2018-12-21 07:44] LABS: ALBUMIN 2.6 g/dL (3.4-4.8); TOTAL BILIRUBIN 0.6 mg/dL (0.0-1.0)
[2018-12-21 07:50] LABS: CREATININE 7.78 mg/dL (0.55-1.30)
[2018-12-21] MEDS ORDERED: LEVO75TA7 PO (08:07)
[2018-12-21] MEDS ORDERED: CHOL400T28 PO (08:07)
[2018-12-21] MEDS ORDERED: FUROSEMIDE 100 MG/10 ML VIAL IVP ONE (08:15)
[2018-12-21] MEDS ORDERED: BUMEX 1 MG/4 ML VIAL IVP ONE (08:15)
[2018-12-21] MEDS ORDERED: DOCUSATE SODIUM 250 MG CAPSULE PO PRN (12:45)
[2018-12-21] MEDS ORDERED: oxyCODONE HCL 5 MG TABLET PO PRN ×2 (12:45→12:50)
[2018-12-21] MEDS ORDERED: MIDODRINE HCL 5 MG TABLET (PROAMATINE) PO PRN (12:45)
[2018-12-21] MEDS ORDERED: CALCIUM ACETATE 667 MG CAP PO ONE (13:00)
[2018-12-21] MEDS ORDERED: FERROUS SULFATE 325 MG TABLET.DR PO ONE (13:15)
[2018-12-21] MEDS ORDERED: SENNOSIDES 8.6 MG TABLET PO ONE (13:15)
[2018-12-21] MEDS ORDERED: CHOLECALCIFEROL (VITAMIN D-3) 400 UNIT TABLET PO ONE (13:15)
[2018-12-21] MEDS ORDERED: FOLIC ACID 1 MG TABLET PO ONE (13:15)
[2018-12-21] MEDS ORDERED: PANTOPRAZOLE SODIUM 40 MG TAB PO ONE (13:15)
[2018-12-21] MEDS ORDERED: APIXABAN 2.5 MG TABLET PO ONE (13:15)
[2018-12-21] MEDS ORDERED: SERTRALINE HCL 50 MG TABLET PO ONE (13:15)
[2018-12-21] MEDS ORDERED: ZORTRESS 0.75 MG PO ONE (13:45)
[2018-12-21] MEDS ORDERED: TACROLIMUS ANHYDROUS 0.5 MG CAPSULE (PROGRAF) PO ONE (14:00)
[2018-12-21] MEDS ORDERED: ALTEPLASE 2 MG VIAL MC ONE ×3 (14:30→16:00)
[2018-12-21] MEDS: CALCIUM ACETATE 667 MG CAP PO SCH (18:02)
[2018-12-21] MEDS: TACROLIMUS ANHYDROUS 0.5 MG CAPSULE (PROGRAF) PO SCH (20:59)
[2018-12-21] MEDS: ATORVASTATIN 20 MG TABLET PO SCH (20:59)
[2018-12-21] MEDS: ZORTRESS 0.75 MG PO SCH (21:00)
[2018-12-21] MEDS: SENNOSIDES 8.6 MG TABLET PO SCH (21:00)
[2018-12-21] MEDS ORDERED: ISOSORBIDE MONONITRATE 30 MG TAB.ER.24H PO SCH (21:00)
[2018-12-21] MEDS: FERROUS SULFATE 325 MG TABLET.DR PO SCH (21:00)
[2018-12-21] MEDS: APIXABAN 2.5 MG TABLET PO SCH (21:02)
[2018-12-21] MEDS ORDERED: LORazepam 1 MG TABLET PO ONE (23:00)
[2018-12-22] VITALS (17 sets, daily range): BP systolic 97–131
[2018-12-22] MEDS ORDERED: LORazepam 1 MG TABLET PO PRN (01:00)
[2018-12-22 05:48] LABS: BASOPHILS # (AUTO) 0.1 K/uL (0.0-0.2); BASOPHILS % (AUTO) 1.5 % (0.0-2.0); EOSINOPHILS # (AUTO) 0.2 K/uL (0.0-0.4); EOSINOPHILS % (AUTO) 4.1 % (0.0-4.0); HEMATOCRIT 37.8 % (36-54); HEMOGLOBIN 11.8 g/dL (14.0-18.0); LYMPHOCYTES # (AUTO) 0.4 K/uL (1.0-5.5); LYMPHOCYTES % (AUTO) 7.7 % (20.5-51.5); MEAN CORPUSCULAR HEMOGLOBIN 24 pg (27-31); MEAN CORPUSCULAR HGB CONC 31 % (32-36); MEAN CORPUSCULAR VOLUME 78 fL (79.0-98.0); MONOCYTES # (AUTO) 0.8 K/uL (0.0-1.0); MONOCYTES % (AUTO) 13.2 % (1.7-9.3); NEUTROPHILS # (AUTO) 4.2 K/uL (1.8-7.7); NEUTROPHILS % (AUTO) 73.5 % (40.0-70.0); PLATELET COUNT (AUTO) 140 K/uL (130-430); RED BLOOD CELL COUNT(AUTO) 4.83 MIL/uL (4.2-6.2); WHITE BLOOD COUNT (AUTO) 5.7 K/uL (4.8-10.8)
[2018-12-22 06:30] LABS: ALBUMIN 2.5 g/dL (3.4-4.8); CALCIUM 9.1 mg/dL (8.4-11.0); CREATININE 6.09 mg/dL (0.55-1.30); PHOSPHORUS 5.4 mg/dL (2.7-4.5); THYROID STIMULATING HORMONE 1.62 uIu/mL (0.34-4.82); TOTAL BILIRUBIN 0.6 mg/dL (0.0-1.0)
[2018-12-22] MEDS: LEVOTHYROXINE SODIUM 0.075 MG TABLET PO SCH (06:59)
[2018-12-22] MEDS: CALCIUM ACETATE 667 MG CAP PO SCH ×3 (08:45→17:24)
[2018-12-22] MEDS ORDERED: FUROSEMIDE 40 MG TABLET PO SCH (09:00)
[2018-12-22] MEDS: CHOLECALCIFEROL (VITAMIN D-3) 400 UNIT TABLET PO SCH (09:35)
[2018-12-22] MEDS: PANTOPRAZOLE SODIUM 40 MG TAB PO SCH (09:35)
[2018-12-22] MEDS: SERTRALINE HCL 50 MG TABLET PO SCH (09:35)
[2018-12-22] MEDS: FERROUS SULFATE 325 MG TABLET.DR PO SCH ×2 (09:35→20:49)
[2018-12-22] MEDS: SENNOSIDES 8.6 MG TABLET PO SCH ×2 (09:35→20:49)
[2018-12-22] MEDS: APIXABAN 2.5 MG TABLET PO SCH ×2 (09:36→20:49)
[2018-12-22] MEDS: FOLIC ACID 1 MG TABLET PO SCH (09:37)
[2018-12-22] MEDS: TACROLIMUS ANHYDROUS 0.5 MG CAPSULE (PROGRAF) PO SCH ×2 (09:37→20:58)
[2018-12-22] MEDS: ZORTRESS 0.75 MG PO SCH ×2 (09:38→20:50)
[2018-12-22 13:21] LABS: SOURCE/TYPE ,BODY FLUID THORACENTESIS
[2018-12-22 13:22] LABS: BF APPEARANCE UNSPUN HAZY (CLEAR); BODY FLUID COLOR RED (LT YELLOW); BODY FLUID SOURCE/ TYPE PLEURAL
[2018-12-22 13:23] LABS: BODY FLUID TOTAL VOLUME 2050 mL
[2018-12-22 14:20] LABS: APPEARANCE,SPUN,BODY FLUID HAZY (CLEAR)
[2018-12-22 15:17] LABS: LYMPHOCYTES, BODY FLUID 39 %; NEUTROPHIL, BODY FLUID 25 %; RBC, BODY FLUID 4378 /uL; WBC, BODY FLUID 1816 /uL
[2018-12-22 15:18] LABS: EOSINOPHIL, BODY FLUID 2 %; MONOCYTES,BODY FLUID 34 %
[2018-12-22] MEDS: ATORVASTATIN 20 MG TABLET PO SCH (20:49)
[2018-12-22] MEDS ORDERED: ZOLPIDEM TARTRATE 5 MG TABLET PO SCH (21:00)
[2018-12-23 00:30] VITALS: BP_SYST 103
[2018-12-23 01:08] LABS: BODY FLUID GLUCOSE 104 mg/dL; BODY FLUID TOTAL PROTEIN 2.4 g/dL
[2018-12-23] MEDS ORDERED: HEPARIN SODIUM,PORCINE 5000 UNITS/ML VIAL MC ONE (04:30)
[2018-12-23] MEDS: LEVOTHYROXINE SODIUM 0.075 MG TABLET PO SCH (06:12)
[2018-12-23 06:14] LABS: BASOPHILS # (AUTO) 0.1 K/uL (0.0-0.2); BASOPHILS % (AUTO) 1.5 % (0.0-2.0); EOSINOPHILS # (AUTO) 0.1 K/uL (0.0-0.4); EOSINOPHILS % (AUTO) 2.2 % (0.0-4.0); HEMATOCRIT 38.5 % (36-54); HEMOGLOBIN 12.2 g/dL (14.0-18.0); LYMPHOCYTES # (AUTO) 0.5 K/uL (1.0-5.5); LYMPHOCYTES % (AUTO) 8.6 % (20.5-51.5); MEAN CORPUSCULAR HEMOGLOBIN 24 pg (27-31); MEAN CORPUSCULAR HGB CONC 32 % (32-36); MEAN CORPUSCULAR VOLUME 77 fL (79.0-98.0); MONOCYTES # (AUTO) 0.8 K/uL (0.0-1.0); MONOCYTES % (AUTO) 13.6 % (1.7-9.3); NEUTROPHILS # (AUTO) 4.2 K/uL (1.8-7.7); NEUTROPHILS % (AUTO) 74.1 % (40.0-70.0); PLATELET COUNT (AUTO) 131 K/uL (130-430); RED CELL DISTRIBUTION WIDTH 23.9 % (9.0-15.0); WHITE BLOOD COUNT (AUTO) 5.6 K/uL (4.8-10.8)
[2018-12-23 07:12] LABS: ALBUMIN 2.6 g/dL (3.4-4.8); CALCIUM 8.7 mg/dL (8.4-11.0); CREATININE 4.18 mg/dL (0.55-1.30); POTASSIUM 3.1 mmol/L (3.5-5.1); TOTAL BILIRUBIN 0.6 mg/dL (0.0-1.0)
[2018-12-23 07:46] VITALS: BP_SYST 97
[2018-12-23] MEDS: SERTRALINE HCL 50 MG TABLET PO SCH (08:20)
[2018-12-23] MEDS: PANTOPRAZOLE SODIUM 40 MG TAB PO SCH (08:20)
[2018-12-23] MEDS: CHOLECALCIFEROL (VITAMIN D-3) 400 UNIT TABLET PO SCH (08:20)
[2018-12-23] MEDS: FOLIC ACID 1 MG TABLET PO SCH (08:20)
[2018-12-23] MEDS: SENNOSIDES 8.6 MG TABLET PO SCH (08:20)
[2018-12-23] MEDS: FERROUS SULFATE 325 MG TABLET.DR PO SCH (08:20)
[2018-12-23] MEDS: CALCIUM ACETATE 667 MG CAP PO SCH ×2 (08:20→14:34)
[2018-12-23] MEDS: APIXABAN 2.5 MG TABLET PO SCH (08:21)
[2018-12-23] MEDS: TACROLIMUS ANHYDROUS 0.5 MG CAPSULE (PROGRAF) PO SCH (08:22)
[2018-12-23] MEDS: ZORTRESS 0.75 MG PO SCH (08:23)
[2018-12-23] MEDS ORDERED: POTASSIUM CHLORIDE 20 MEQ TAB.PRT.SR PO ONE (10:15)
[2018-12-23 16:56] VITALS: BP_SYST 106
[2018-12-23 17:19] VITALS: BP_SYST 106
== END 2018-12-23 18:00 | disposition home or self-care (01) | DRG 198 ==
LOC: SED 06:19 → SIC 09:20 → STU 12-22 15:50
PROVIDERS: ADMIT Internal Medicine; ATTEND Internal Medicine
PROC: 5A1D70Z Performance of Urinary Filtration, Intermittent, Less than 6 Hours Per Day (ICD-10-PCS; principal; 2018-12-21)
PROC: 5A09357 Assistance with Respiratory Ventilation, Less than 24 Consecutive Hours, Continuous Positive Airway Pressure (ICD-10-PCS; 2018-12-21)
PROC: 0W993ZZ Drainage of Right Pleural Cavity, Percutaneous Approach (ICD-10-PCS; 2018-12-22)
PROC: 5A1D70Z Performance of Urinary Filtration, Intermittent, Less than 6 Hours Per Day (ICD-10-PCS; 2018-12-23)
DX: I24.8 Other forms of acute ischemic heart disease (principal); J96.01 Acute respiratory failure with hypoxia; I50.43 Acute on chronic combined systolic (congestive) and diastolic (congestive) heart failure; E43 Unspecified severe protein-calorie malnutrition; J91.8 Pleural effusion in other conditions classified elsewhere; D68.59 Other primary thrombophilia; I42.6 Alcoholic cardiomyopathy; Z94.1 Heart transplant status; N18.6 End stage renal disease; E03.9 Hypothyroidism, unspecified; E78.5 Hyperlipidemia, unspecified; I34.0 Nonrheumatic mitral (valve) insufficiency; D63.8 Anemia in other chronic diseases classified elsewhere; I25.10 Atherosclerotic heart disease of native coronary artery without angina pectoris; K74.60 Unspecified cirrhosis of liver; F32.9 Major depressive disorder, single episode, unspecified; M10.9 Gout, unspecified; K72.90 Hepatic failure, unspecified without coma; Z79.01 Long term (current) use of anticoagulants; Z82.49 Family history of ischemic heart disease and other diseases of the circulatory system; Z86.711 Personal history of pulmonary embolism; Z86.718 Personal history of other venous thrombosis and embolism; Z99.2 Dependence on renal dialysis; Z68.27 Body mass index [BMI] 27.0-27.9, adult; Z79.899 Other long term (current) drug therapy
CPT/HCPCS: 32555; 36415; 36600; 71045; 80053; 82550-TC; 82803-TC; 82947-TC; 83615-TC; 83735-TC; 83874; 83880; 84100-TC; 84157-TC; 84439; 84443-TC; 84484; 85025; 85379; 85610-TC; 87070-TC; 87081; 87116; 88108; 88305; 89051-TC; 89060-TC; 90935; 90937; 93005; 94660; 96374; 96375; 99285; C1729; G0378; J1644; J1940; J2997; J3490; J7030; J7507

== ENCOUNTER 2019-01-12 17:22 | Inpatient (IN) | payer MEDICAID ==
[~2019-01-12] VITALS: Ht 180.3 cm; Wt 80.7 kg
[~2019-01-12 17:22] MED LIST changes: +CHOL400T28 PO; -FEBU40TA PO; -LEVO25TA7 PO; +LEVO75TA7 PO; -VITD400 PO
--- NOTE | 2019-01-12 17:29 | NUR ---
Triaged at bedside. Placed in room 7. Placed on lunchroom monitor, blood pressure machine and pulse oximeter. To gown for exam. Side rails up. Report given to Pauline URIOSTEGUI.
[2019-01-12 17:30] VITALS: BP_SYST 166
--- NOTE | 2019-01-12 17:30 | NUR ---
Pt brought in by . Pt alert and oriented x4. Pt states that he is short of breath. Pt states that he normally has dialysis 3 days a week, and he did an additional day of dialysis after his PCP requested it. Pt denies CP, N/V, Dizziness, blurred vision, No other complaint at this time. Pt resting in tripod position in bed, as he states it is more comfortable to breathe. Pt attached to monitor, vss, will continue to monitor.
--- NOTE | 2019-01-12 18:00 | NUR ---
ER at bedside examining patient.
[2019-01-12 18:12] LABS: CALCIUM 9.1 mg/dL (8.4-11.0); CREATININE 5.15 mg/dL (0.55-1.30); POTASSIUM 3.3 mmol/L (3.5-5.1)
[2019-01-12 18:16] LABS: BASOPHILS % (AUTO) 0.7 % (0.0-2.0); EOSINOPHILS # (AUTO) 0.1 K/uL (0.0-0.4); EOSINOPHILS % (AUTO) 1.7 % (0.0-4.0); HEMATOCRIT 41.8 % (36-54); HEMOGLOBIN 13.1 g/dL (14.0-18.0); LYMPHOCYTES # (AUTO) 0.8 K/uL (1.0-5.5); LYMPHOCYTES % (AUTO) 11.9 % (20.5-51.5); MEAN CORPUSCULAR HEMOGLOBIN 25 pg (27-31); MEAN CORPUSCULAR HGB CONC 31 % (32-36); MEAN CORPUSCULAR VOLUME 78 fL (79.0-98.0); MONOCYTES # (AUTO) 0.9 K/uL (0.0-1.0); NEUTROPHILS # (AUTO) 4.8 K/uL (1.8-7.7); NEUTROPHILS % (AUTO) 72.7 % (40.0-70.0); PLATELET COUNT (AUTO) 145 K/uL (130-430); RED BLOOD CELL COUNT(AUTO) 5.35 MIL/uL (4.2-6.2); RED CELL DISTRIBUTION WIDTH 22.4 % (9.0-15.0); WHITE BLOOD COUNT (AUTO) 6.5 K/uL (4.8-10.8)
[2019-01-12 18:18] LABS: INR 1.1 (0.80-1.20); PROTHROMBIN TIME 10.9 SECS (9.5-12.5)
[2019-01-12 18:19] LABS: ALBUMIN 2.7 g/dL (3.4-4.8); TOTAL BILIRUBIN 0.6 mg/dL (0.0-1.0)
[2019-01-12] MEDS ORDERED: PIPERACILLIN/TAZO 3.375 GM in NS 50 ML IV ONE (18:30)
--- NOTE | 2019-01-12 18:41 | NUR ---
Medication reconciliation completed with information provided by Patient's list. Any prior medication reconciliation on file was reviewed and corrected.
--- NOTE | 2019-01-12 18:42 | NUR ---
Amparo duque in ED - 01/12/19 at 1842 by SDEDCJM GIORGI Kendall at bedside examining patient.
[2019-01-12] MEDS ORDERED: ASPIRIN 81 MG TAB.CHEW PO ONE (19:00)
[2019-01-12] MEDS ORDERED: ENOXAPARIN SODIUM 80 MG/0.8 ML SYRINGE SUBCUT ONE (19:00)
[2019-01-12] MEDS ORDERED: PIPERACILLIN/TAZOBACTAM 3.375 GM/VIAL (ZOSYN) IV ONE (19:25)
--- NOTE | 2019-01-12 20:15 | NUR ---
Patient will be admitted to care of Dr. Almaraz. Admitted to Telemetry unit. Will go to room 119. Belongings list completed. Summary report printed. Report will be given at bedside.
--- NOTE | 2019-01-12 21:07 | NUR ---
Transfer to Telemetry via ACLS protocol. Licensed nurse present. IV present no signs or symptoms of infiltration.
--- NOTE | 2019-01-12 21:23 | NUR ---
ADMISSION: The patient, ALDA RAGSDALE, 58 y/o, M admitted by JADE LOGAN MD, was given written information regarding hospital policies, unit procedures and contact persons. Valuables were checked and pt oriented to his room and surrounding. Pt was informed his nurse will be Kayley.
[2019-01-12 21:45] VITALS: BP_SYST 100
--- NOTE | 2019-01-12 21:45 | NUR ---
INITIAL NOTES: PT IS ALERT AWAKE AND ORIENTED ; ON O2 3 L NC , SAT 97 % AND ABOVE , PT SILL C/O OF MILD SOB , ASSESSMENT DONE ; NOTICED LEFT CHEST WITH DIALYSIS CATH , DRESSING IN PLACE ; DRESSING CLEAN DRY AND INTACT , PT STATED HE HAD DIALYSIS TODAY AND 2 L REMOVED ; ABDOMEN IS DISTENDED ; VITALS ARE STABLE BUT BP IS SLIGHTLY LOW ;MICHELLE LOWER LEGS NOTICED WITH BLACK DISCOLORATION AND EDEMA , EDEMA TO FOOT TOO ; NO OPEN WOUNDS NOTICED ; PT HAD HEART TRANSPLANT 9 YRS AGO ; PT MADE COMFORTABLE ; AND FRIEND AT BEDSIDE ;BED IN LOW AND LOCK POSITION , CALL MATA IN REACH ; ENCOURAGED PT TO CALL FOR ANY HELP ; PT REFUSED BED ALARM ; WILL CONTINUE TO MONITOR PT . TELE MONITOR IS RUNNING SR ON THE 80S
--- NOTE | 2019-01-12 22:00 | NUR ---
MD ROUNDS: DR JEREZ AT BEDSIDE . TALKING WITH PT AND FAMILY
[2019-01-12] MEDS ORDERED: ZOLPIDEM TARTRATE 5 MG TABLET PO PRN (22:30)
[2019-01-12] MEDS ORDERED: oxyCODONE HCL 5 MG TABLET PO PRN (22:30)
[2019-01-12] MEDS ORDERED: DOCUSATE SODIUM 250 MG CAPSULE PO PRN (22:30)
--- NOTE | 2019-01-12 22:30 | NUR ---
Dr. Almaraz called back and stated he has sent Dr. Paul to come and see pt jayme, therefore RN can obtain new orders from Dr. Paul.
--- NOTE | 2019-01-12 22:30 | NUR ---
Paged Dr. Almaraz for orders.
[2019-01-12] MEDS ORDERED: ALBUTEROL SULFATE 0.083% 2.5 MG/3 ML VIAL.NEB INH PRN (23:00)
--- NOTE | 2019-01-12 23:10 | NUR ---
CPAP : RT PLACED PT ON CPAP 5 WITH 28% , WILL MONITOR TO KEEP PT SAT 92% AND ABOVE ; PT TOLERATING CPAP WELL
--- NOTE | 2019-01-12 23:10 | NUR ---
MD ROUNDS: PT IS VERY SOB , SAT IS MORE THAN 97% STILL DR RINALDI IS AT BEDSIDE ; MD MADE NEW ORDERS
[2019-01-12] MEDS ORDERED: TACROLIMUS ANHYDROUS 1 MG CAPSULE (PROGRAF) PO ONE (23:15)
[2019-01-12] MEDS ORDERED: COMMUNICATION ORDER XX ONE (23:15)
--- NOTE | 2019-01-12 23:30 | NUR ---
MEDICATION : DR DEVINE NOTIFIED THAT PT IS ON PRO GRAFT AND ZORTRESS FOR HIS HEART TRANSPLANT , ORDERED TO GIVE IT TONIGHT . PHARMACY CALLED NOTIFIED THAT PT NEEDS ONE DOSE OF THESE MEDICATION TONIGHT . PHARMACY VERIFIED PRO GRAFT AFTER RN ENTERED ONE TIME DOSE , BUT RN COULDNT ABLE TO ENTER ZORTRESS X 1 BUT ENTERED UNDER COMMUNICATION ORDER ZORTRESS 0.75 MG X1 TONIGHT , PHARMACIST MARV SAID SHE CANNOT VERIFY THAT ORDER , NOTIFIED HER THAT RN UNABLE TO ENTER ONE TIME DOSE . PHARMACIST STATED THEN RN HAD TO WEIGHT FOR TOMORROW FOR THE HOSPITAL PHARMACIST TO VERIFY THE MEDICATION . DR YOUSIF IS STILL ON MED SURG FLOOR , NOTIFIED MD , AFTER CHECKING MD ORDERED TO GIVE PTS OWN ZORTRESS FOR TONIGHT , BUT PRO GRAFT IS NOT AVAILABLE AT THIS TIME PER SACO SUP . ;DR WILL IS AWARE , STATED OK TO START IT FROM TOMORROW. ALSO ORDERED ONE TIME DOSE AMBIEN 10 MG PO PRN FOR TONIGHT .
[2019-01-13] VITALS (7 sets, daily range): BP systolic 97–106
[2019-01-13] MEDS ORDERED: ZOLPIDEM TARTRATE 5 MG TABLET PO PRN
--- NOTE | 2019-01-13 | NUR ---
MEDICATION: PER DR GONZALEZ ORDERED ZORTRESS ( PTS OWN MEDICATION ) 0.75 MG X 1 GIVEN PO , PT IS ABLE TO SWALLOW WELL ; PLACED PT BACK ON CPAP , PT IS SAT 97% AND ABOVE .
--- NOTE | 2019-01-13 01:00 | NUR ---
RN ROUNDS: PT IS SLEEPING COMFORTABLY ; PT TOLERATING CPAP SETTING WELL ; SAT 97% ; WILL CONTINUE TO MONITOR PT .
--- NOTE | 2019-01-13 02:45 | NUR ---
RN ROUNDS: PT IS SLEEPING COMFORTABLY ;RESPIRATION IS EVEN AND NON LABORED , PT TOLERATING CPAP SETTING WELL ; SAT 98% ; WILL CONTINUE TO MONITOR PT .
--- NOTE | 2019-01-13 04:23 | NUR ---
Consultation Paged Reason for consultation: CHF Was consult called: Y Person who was notified: Fitness Management Director 22 Consulting Physician: Masoud Santillan Information Security Systems Instructor Ordering Physician: Dr. Almaraz
--- NOTE | 2019-01-13 04:28 | NUR ---
Consultation Paged Reason for consultation: Recurrent, Right Pleural Effusion Was consult called: Y Person who was notified: Linda Consulting Physician: Essence Mtz Mushroom Picker Ordering Physician: Dr. Paul
--- NOTE | 2019-01-13 04:40 | NUR ---
RN ROUNDS: PT IS SLEEPING COMFORTABLY ; PT TOLERATING CPAP SETTING WELL , RESPIRATION IS EVEN AND NON LABORED ; SAT 96% ; WILL CONTINUE TO MONITOR PT .
--- NOTE | 2019-01-13 05:58 | NUR ---
Consultation Paged Reason for consultation: Dialysis Was consult called: Y Person who was notified: Linda Consulting Physician: Noam Matthew Reimbursement Spec Ordering Physician: Noam Matthew
--- NOTE | 2019-01-13 06:25 | NUR ---
MEDICATION: DUE MEDS GIVEN, PT IS COMFORTABLE ; NOT IN ANY ACUTE DISTRESS; SAT 98% , PT IS STILL ON CPAP, NOT N ANY ACUTE DISTRESS; WILL CONTINUE TO MONITOR PT .
--- NOTE | 2019-01-13 06:51 | NUR ---
CLOSING NOTES: PT IS SLEEPING , NOT IN ANY ACUTE DISTRESS; TOLERATING CPAP WELL, SAT 97% ; ALL NEEDS MET; WILL CONTINUE TO MONITOR AND WILL ENDORSE TO NEXT SHIFT NURSE.
[2019-01-13] MEDS ORDERED: LEVOTHYROXINE SODIUM 0.075 MG TABLET PO SCH (07:00)
--- NOTE | 2019-01-13 07:25 | NUR ---
opening note patient is resting in bed, patient has cpap on and RT was called to take it off per patient request, A&Ox4, assessment completed, educated parking control officer light system and plan of care, patient verbalized understanding, fall/safety precautions in place, no signs of distress.
[2019-01-13] MEDS ORDERED: CHOLECALCIFEROL (VITAMIN D-3) 400 UNIT TABLET PO SCH (09:00)
[2019-01-13] MEDS ORDERED: FOLIC ACID 1 MG TABLET PO SCH (09:00)
[2019-01-13] MEDS ORDERED: SERTRALINE HCL 50 MG TABLET PO SCH (09:00)
[2019-01-13] MEDS ORDERED: FUROSEMIDE 80 MG TABLET PO SCH (09:00)
[2019-01-13] MEDS ORDERED: TACROLIMUS ANHYDROUS 1 MG CAPSULE (PROGRAF) PO SCH (09:00)
[2019-01-13] MEDS ORDERED: APIXABAN 2.5 MG TABLET PO SCH (09:00)
[2019-01-13] MEDS ORDERED: EVEROLIMUS 0.75 MG PO SCH (09:00)
[2019-01-13] MEDS ORDERED: ESOMEPRAZOLE MAGNESIUM 10 MG PO SCH (09:00)
[2019-01-13] MEDS ORDERED: SENNOSIDES 8.6 MG TABLET PO SCH (09:00)
[2019-01-13] MEDS ORDERED: FERROUS SULFATE 325 MG TABLET.DR PO SCH (09:00)
[2019-01-13] MEDS: MIDODRINE HCL 5 MG TABLET (PROAMATINE) PO SCH ×2 (09:08→15:34)
[2019-01-13] MEDS: MAGNESIUM CHLORIDE 64 MG TABLET.DR PO SCH ×2 (09:09→15:34)
[2019-01-13] MEDS: CALCIUM ACETATE 667 MG CAP PO SCH ×2 (09:09→15:34)
--- NOTE | 2019-01-13 09:10 | NUR ---
medications patient is resting in bed, family in the room, educated on medication uses and side effects, patient verbalized understanding, Dr Blanchard in room for rounds, US thoracentesis will be held at this time due to low bp.
--- NOTE | 2019-01-13 10:05 | NUR ---
Nutrition Update Vincenzo Scale 17 noted. Pt admitted for CHF. Diet: cardiac, renal BMI: 24.8 kg/m2 RD to follow per nutrition care standards.
[2019-01-13] MEDS ORDERED: ONDANSETRON HCL 4 MG/2 ML VIAL IVP PRN (10:45)
[2019-01-13] MEDS ORDERED: PANTOPRAZOLE SODIUM 40 MG/VIAL (PROTONIX) IVP ONE (10:45)
[2019-01-13] MEDS ORDERED: MAG-AL HYDROX/SIMETH 30 ML UDC PO PRN (10:45)
--- NOTE | 2019-01-13 11:20 | NUR ---
prn medications patient is resting in bed, family in the room, educated on medication uses and side effects, patient verbalized understanding, Dr Almaraz was called due to patient complaining of nausea and vomited and has heartburn, informed him that the thoracentesis will be at 1230 and the dialysis will be afterwards.
--- NOTE | 2019-01-13 13:00 | NUR ---
patient has US thoracentesis 1000ml was taken out, fluids will be taken to lab, patient stated that his breathing is better, no other needs at this time, fall/safety precautions in place.
[2019-01-13 14:29] LABS: CALCIUM 9.4 mg/dL (8.4-11.0); CREATININE 6.34 mg/dL (0.55-1.30); POTASSIUM 3.6 mmol/L (3.5-5.1)
[2019-01-13 14:46] LABS: BASOPHILS # (AUTO) 0.1 K/uL (0.0-0.2); EOSINOPHILS # (AUTO) 0.1 K/uL (0.0-0.4); NEUTROPHILS # (AUTO) 5.5 K/uL (1.8-7.7)
--- NOTE | 2019-01-13 14:50 | NUR ---
patient refused dialysis dialysis nurse informed me that patient refused dialysis for today and wants it tomorrow when it is his scheduled day, Dr Perez is aware.
[2019-01-13 15:03] LABS: HEMATOCRIT 45.3 % (36-54); LYMPHOCYTES # (AUTO) 0.9 K/uL (1.0-5.5); MEAN CORPUSCULAR HEMOGLOBIN 25 pg (27-31); MEAN CORPUSCULAR HGB CONC 31 % (32-36); MEAN CORPUSCULAR VOLUME 79 fL (79.0-98.0); PLATELET COUNT (AUTO) 175 K/uL (130-430); RED BLOOD CELL COUNT(AUTO) 5.71 MIL/uL (4.2-6.2)
[2019-01-13 15:08] LABS: BASOPHILS % (AUTO) 0.9 % (0.0-2.0); EOSINOPHILS % (AUTO) 1.7 % (0.0-4.0); MONOCYTES % (AUTO) 13.9 % (1.7-9.3); NEUTROPHILS % (AUTO) 73.5 % (40.0-70.0); RED CELL DISTRIBUTION WIDTH 22.7 % (9.0-15.0)
[2019-01-13 15:09] LABS: WHITE BLOOD COUNT (AUTO) 7.5 K/uL (4.8-10.8)
--- NOTE | 2019-01-13 16:07 | NUR ---
Dietitian Recommendations * Recommend cardiac, renal diet w/ Nepro BID (ONS provides 850 kcal/day, 38 gm protein/day) JAYA, RD Please refer to Nutrition Assessment for details. Addendum: 01/13/19 at [address] Amended: Links added.
[2019-01-13 19:30] LABS: SOURCE/TYPE ,BODY FLUID THORACENTESIS
[2019-01-13 19:31] LABS: APPEARANCE,SPUN,BODY FLUID HAZY (CLEAR); BF APPEARANCE UNSPUN CLOUDY (CLEAR); BODY FLUID SOURCE/ TYPE PLEURAL
[2019-01-13 19:32] LABS: BODY FLUID COLOR BROWN (LT YELLOW); BODY FLUID TOTAL VOLUME 1075 mL; NEUTROPHIL, BODY FLUID 52 %; RBC, BODY FLUID 2538 /uL; WBC, BODY FLUID 46 /uL
[2019-01-13 19:33] LABS: MONOCYTES,BODY FLUID 48 %
[2019-01-13] MEDS ORDERED: TACROLIMUS ANHYDROUS 0.5 MG CAPSULE (PROGRAF) PO SCH (21:00)
[2019-01-13] MEDS ORDERED: ISOSORBIDE MONONITRATE 30 MG TAB.ER.24H PO SCH (21:00)
[2019-01-13] MEDS ORDERED: ATORVASTATIN 20 MG TABLET PO SCH (21:00)
[2019-01-13 21:20] LABS: BODY FLUID GLUCOSE 109 mg/dL; BODY FLUID TOTAL PROTEIN 2.8 g/dL
[2019-01-14] MEDS ORDERED: PANTOPRAZOLE SODIUM 40 MG/VIAL (PROTONIX) IVP SCH (09:00)
--- NOTE | 2019-01-14 11:14 | NUR ---
FOLLOW UP APPT WITH PCP, CHF PROTOCOL DISCUSSED WITH PATIENT'S RITA GRIGGS, APPOINT IS WITH DR SADIQ LIU IN [place] [phone], APPT IS ON JANUARY 21, 2019 AT 1430.
== END 2019-01-13 17:15 | disposition home or self-care (01) | DRG 194 ==
LOC: SED 17:22 → STU 20:13
PROVIDERS: ADMIT Internal Medicine; ATTEND Internal Medicine
PROC: 5A09357 Assistance with Respiratory Ventilation, Less than 24 Consecutive Hours, Continuous Positive Airway Pressure (ICD-10-PCS; principal; 2019-01-12)
PROC: 5A09357 Assistance with Respiratory Ventilation, Less than 24 Consecutive Hours, Continuous Positive Airway Pressure (ICD-10-PCS; 2019-01-13)
PROC: 0W993ZZ Drainage of Right Pleural Cavity, Percutaneous Approach (ICD-10-PCS; 2019-01-13)
DX: I50.43 Acute on chronic combined systolic (congestive) and diastolic (congestive) heart failure (principal); J96.20 Acute and chronic respiratory failure, unspecified whether with hypoxia or hypercapnia; E43 Unspecified severe protein-calorie malnutrition; E46 Unspecified protein-calorie malnutrition; Z94.1 Heart transplant status; I27.20 Pulmonary hypertension, unspecified; D68.59 Other primary thrombophilia; J90 Pleural effusion, not elsewhere classified; I42.0 Dilated cardiomyopathy; K72.90 Hepatic failure, unspecified without coma; N18.6 End stage renal disease; E03.9 Hypothyroidism, unspecified; E78.5 Hyperlipidemia, unspecified; K74.60 Unspecified cirrhosis of liver; F10.10 Alcohol abuse, uncomplicated; M10.9 Gout, unspecified; F32.9 Major depressive disorder, single episode, unspecified; D63.8 Anemia in other chronic diseases classified elsewhere; Z68.24 Body mass index [BMI] 24.0-24.9, adult; Z86.711 Personal history of pulmonary embolism; Z86.718 Personal history of other venous thrombosis and embolism; Z87.891 Personal history of nicotine dependence; Z99.2 Dependence on renal dialysis; Z79.899 Other long term (current) drug therapy
CPT/HCPCS: 32555; 36415; 71045; 80048; 80053; 82947-TC; 83605; 83880; 84157-TC; 84484; 85025; 85610-TC; 85730-TC; 87040-TC; 87081; 88108; 89051-TC; 89060-TC; 93005; 94660; 94760; 96365; 96372; 99285; C1729; C9113; G0378; J1650; J2405; J2543; J7507

== ENCOUNTER 2019-01-21 10:18 | Inpatient (IN) | payer MEDICAID ==
[~2019-01-21] VITALS: Ht 180.3 cm; Wt 75.3 kg
[~2019-01-21 10:18] MED LIST changes: -CALC667T5 PO; +CALC667T6 PO
[2019-01-21 10:38] VITALS: BP_SYST 112
--- NOTE | 2019-01-21 10:38 | NUR ---
Patient to ER bed 8 to gown for evaluation. Side rails up. EKG complete upon arrival, placed on rn cardiac.
--- NOTE | 2019-01-21 10:49 | NUR ---
FAXED OVER CLINICALS TO [facility] ATTENDANT, LETTY, AWAITING CALL BACK FROM LETTY FOR STATUS UPDATE. [phone]
--- NOTE | 2019-01-21 10:50 | NUR ---
ER Dr. Clinton at bedside examining patient.
--- NOTE | 2019-01-21 10:53 | NUR ---
Patient presented to ER with C/O SOB. Patient A&Ox4, ambulatory to ER arrived with . Patient states he feels like he has fluid on the lung. Patient denies pain, denies N/V/D, afebrile. Patient states he was at dialysis today, "1.7 Liters off" in dialysis. patient states he has a hx of liver cirrhosis and has Aiden catheter for dialysis. Patient states he was recently discharged from [facility]. During last hospital admission patient states he had Thorocentesis procedure, lung fluid drained.
--- NOTE | 2019-01-21 10:55 | NUR ---
Patient placed on 2 LPM NC
[2019-01-21 11:07] LABS: BASOPHILS % (AUTO) 0.4 % (0.0-2.0); EOSINOPHILS # (AUTO) 0.1 K/uL (0.0-0.4); EOSINOPHILS % (AUTO) 2.1 % (0.0-4.0); HEMATOCRIT 40.9 % (36-54); HEMOGLOBIN 12.8 g/dL (14.0-18.0); LYMPHOCYTES # (AUTO) 0.6 K/uL (1.0-5.5); LYMPHOCYTES % (AUTO) 10.1 % (20.5-51.5); MEAN CORPUSCULAR HEMOGLOBIN 25 pg (27-31); MEAN CORPUSCULAR HGB CONC 31 % (32-36); MEAN CORPUSCULAR VOLUME 79 fL (79.0-98.0); MONOCYTES # (AUTO) 0.9 K/uL (0.0-1.0); MONOCYTES % (AUTO) 14.2 % (1.7-9.3); NEUTROPHILS # (AUTO) 4.6 K/uL (1.8-7.7); NEUTROPHILS % (AUTO) 73.2 % (40.0-70.0); PLATELET COUNT (AUTO) 150 K/uL (130-430); RED BLOOD CELL COUNT(AUTO) 5.18 MIL/uL (4.2-6.2); RED CELL DISTRIBUTION WIDTH 21.9 % (9.0-15.0); WHITE BLOOD COUNT (AUTO) 6.3 K/uL (4.8-10.8)
[2019-01-21 11:28] LABS: CALCIUM 8.8 mg/dL (8.4-11.0); CREATININE 4.28 mg/dL (0.55-1.30); POTASSIUM 3.6 mmol/L (3.5-5.1)
[2019-01-21 11:37] LABS: ALBUMIN 2.6 g/dL (3.4-4.8); TOTAL BILIRUBIN 0.7 mg/dL (0.0-1.0)
--- NOTE | 2019-01-21 12:31 | NUR ---
Patient will be admitted to care of Dr Holder. Admitted to Tele unit. Will go to [id number] . Belongings list completed. Summary report printed. Report will be given at bedside. Transfer to Tele 101A via ACLS protocol. Licensed nurse present. IV present no signs or symptoms of infiltration.
--- NOTE | 2019-01-21 12:42 | NUR ---
ADMISSION NOTE Received patient from ER via treasure, received report from Tata URIOSTEGUI. Patient admitted with diagnosis of pleural effusion. Patient oriented to hospital routine, call light, toileting and safety-patient verbalized understanding.
--- NOTE | 2019-01-21 13:03 | NUR ---
CONSULTATION PAGED/CALLED Reason for Consultation: [] ELEVATED TROP Person Who was Notified: [] TOBI Consulting Physician: [] DR Mary DELGADO, DR ANSARI JEWELRY SALES ASSOCIATE Produce Sorter Specialty: [] CARDIOLOGY Ordering Physician: [] DR GRADY
--- NOTE | 2019-01-21 13:30 | NUR ---
rounds rounds made and seating at the edge of the bed. awake alert speaks belarusian only, accompanied by at bedside. denies pain at this time. bed to the lowest position and side rails up and locked. call light with reached.
--- NOTE | 2019-01-21 13:39 | NUR ---
CANCELLED THE CARDIOLOGY CONSULT FOR DR ANSARI, SKYDIVING INSTRUCTOR FOR DR DELGADO. SPOKE TO LUISA.
--- NOTE | 2019-01-21 13:41 | NUR ---
CONSULTATION PAGED/CALLED Reason for Consultation: [] ELEVATED TROP Person Who was Notified: [] KARL Consulting Physician: [] DR YOUSIF'S GROUP High Worker Specialty: [] CARDIOLOGY Ordering Physician: [] DR Palmer GRADY
[2019-01-21 13:44] VITALS: BP_SYST 102
[2019-01-21] MEDS ORDERED: ZOLPIDEM TARTRATE 5 MG TABLET PO SCH (13:45)
[2019-01-21] MEDS ORDERED: oxyCODONE HCL 5 MG TABLET PO PRN (13:45)
[2019-01-21] MEDS ORDERED: DOCUSATE SODIUM 250 MG CAPSULE PO SCH (13:45)
--- NOTE | 2019-01-21 15:32 | NUR ---
CONSULTATION PAGED/CALLED Reason for Consultation: ELEVATED TROPININ Person Who was Notified: DAYLIN FROM OFFICE. Consulting Physician: Matte Cutter Specialty: Ordering Physician: Addendum: 01/21/19 at 1711 by Chloe Veronica HI/ CANCELLED CONSULTATION
--- NOTE | 2019-01-21 15:43 | NUR ---
CONSULTATION PAGED/CALLED Reason for Consultation: ESRD,PL EFF,CHF Person Who was Notified: RAN FROM OFFICE. Consulting Physician: Industrial Maintenance Repairer Specialty: Ordering Physician:
--- NOTE | 2019-01-21 15:56 | NUR ---
CONSULTATION PAGED/CALLED Reason for Consultation: ELEVATED TROPONIN Person Who was Notified: GENARO FROM OFFICE. Consulting Physician: Bow Maker Production Specialty: Ordering Physician:
--- NOTE | 2019-01-21 16:32 | NUR ---
rounds seen by dr bridges and dr wan at bedside. denies pain at this time.
[2019-01-21 16:47] VITALS: BP_SYST 102
[2019-01-21] MEDS ORDERED: ACETAMINOPHEN 325 MG TABLET PO PRN (17:00)
[2019-01-21] MEDS ORDERED: IPRATROPIUM/ALBUTEROL SULFATE 3 ML AMPUL.NEB (DUONEB) ONE (17:01)
[2019-01-21 17:23] VITALS: BP_SYST 102
--- NOTE | 2019-01-21 17:47 | NUR ---
CONSULTATION PAGED/CALLED Reason for Consultation: SOB PL EFF, S/P THORACOCENTESISI LAST WEEK Person Who was Notified: MONTSERRAT Consulting Physician: Color Maker Specialty: Ordering Physician:
[2019-01-21] MEDS: CALCIUM ACETATE 667 MG CAP PO SCH ×2 (17:49→22:02)
[2019-01-21] MEDS ORDERED: HEPARIN SODIUM,PORCINE 3000 UNITS/0.6 ML BOLUS IVP PRN (18:30)
[2019-01-21] MEDS ORDERED: HEPARIN SODIUM,PORCINE 2000 UNITS/0.4 ML BOLUS IVP PRN (18:30)
[2019-01-21] MEDS ORDERED: HEPARIN 25,000 UNITS in 250 ML PREMIX IV PRN (18:30)
[2019-01-21] MEDS: IPRATROPIUM/ALBUTEROL SULFATE 3 ML AMPUL.NEB (DUONEB) INH SCH (19:22)
--- NOTE | 2019-01-21 19:30 | NUR ---
Pt was received sitting up in bed fully awake, alert and oriented x4. No acute distress noted at this time. and another family member are visiting at the bedside. Heparin drip is infusing well in at 1100units (11ml/hr) without any signs of infiltration at the IV site. No evidence of active bleeding noted. Fall and safety precautions are in place.
[2019-01-21 20:00] VITALS: BP_SYST 113
[2019-01-21] MEDS ORDERED: [UNRECOGNIZED DRUG - REMARK] XX SCH (20:00)
--- NOTE | 2019-01-21 20:20 | NUR ---
paged paged for Dr Paul, dialed . s/w Dr Sha Burgess is on-call.
--- NOTE | 2019-01-21 20:23 | NUR ---
Critical lab result (Troponin 0.170) was relayed to Dr. Dalton who was covering for Dr. Paul and no new orders received.
--- NOTE | 2019-01-21 20:24 | NUR ---
paged paged for Dr Holder, dialed . s/w Liliana.
[2019-01-21] MEDS ORDERED: ALPRAZolam 0.25 MG TABLET PO PRN (20:30)
[2019-01-21] MEDS ORDERED: IPRATROPIUM/ALBUTEROL SULFATE 3 ML AMPUL.NEB (DUONEB) INH PRN (20:30)
[2019-01-21] MEDS ORDERED: FUROSEMIDE 40 MG/4 ML VIAL IVP ONE (20:30)
--- NOTE | 2019-01-21 20:30 | NUR ---
Spoke with Dr. Holder about pt being very anxious and requesting anxiety medication. Pt and family are also requesting additional breathing treatment even though pt received breathing tx at 1922 and O2 sat is 95%. Critical Troponin result also relayed to Dr. Holder who wanted to know if Integration Analyst or Ice Scraper had seen pt. Dr. Holder was informed neither one of them had seen pt yet, but Dr. Dalton was informed of elevated Troponin, but no new orders given. Dr. Holder stated she will input new orders for pt.
--- NOTE | 2019-01-21 20:35 | NUR ---
Pt is resting quietly in bed and no family member is at the bedside at this time. No SOB noted. Pt was informed Dr. Holder stated she will input some orders in the computer regarding additional breathing tx and anxiety. Pt verbalized understanding. Heparin drip is infusing well without any signs of infiltration at the infusing site. No evidence of active bleeding noted.
--- NOTE | 2019-01-21 20:45 | NUR ---
Radiology at the bedside for US Venous Doppler of BLE. Fall and safety precautions are in place.
[2019-01-21] MEDS ORDERED: APIXABAN 2.5 MG TABLET PO SCH (21:00)
[2019-01-21] MEDS ORDERED: ISOSORBIDE MONONITRATE 30 MG TAB.ER.24H PO SCH (21:00)
[2019-01-21] MEDS ORDERED: ATORVASTATIN 20 MG TABLET PO SCH (21:00)
[2019-01-21] MEDS: MAGNESIUM AMINO ACID CHELATE PO SCH (21:00)
--- NOTE | 2019-01-21 21:45 | NUR ---
New saline lock was inserted in RH with Angiocath 22g for IV Lasix. Spoke with pt's on the phone and she stated since pt had blood clot in JOHN, IV can be started in RH, but not JOHN. She also stated IV can be started in LH, but not TDO because pt's TOD is being reserved for shunt placement.
[2019-01-21] MEDS: FERROUS SULFATE 325 MG TABLET.DR PO SCH (22:02)
[2019-01-21] MEDS: TACROLIMUS ANHYDROUS 0.5 MG CAPSULE (PROGRAF) PO SCH (22:03)
[2019-01-21] MEDS: SENNOSIDES 8.6 MG TABLET PO SCH (22:11)
--- NOTE | 2019-01-21 22:11 | NUR ---
HS medications given. Pt's denies anxiety or Insomnia. Pt was instructed to call for assistance before getting out of bed because he may become dizzy from medications administered and pt verbalized understanding. Call light is with pt and bed alarm is on. Heparin drip is infusing well in LH and no signs of infiltration noted at the IV site. No evidence of active bleeding noted.
[2019-01-21 23:16] VITALS: BP_SYST 112
--- NOTE | 2019-01-22 | NUR ---
Pt is resting without any distress noted. Heparin drip is infusing well in LH. Call light is with pt and bed alarm is on.
[2019-01-22] MEDS: IPRATROPIUM/ALBUTEROL SULFATE 3 ML AMPUL.NEB (DUONEB) INH SCH ×2 (00:16→07:22)
--- NOTE | 2019-01-22 01:43 | NUR ---
Result of 0100 PTT is still pending. Heparin drip is infusing well at 1100 units(11ml/hr). IV site is without any signs of infiltration and no signs of active bleeding noted. Pt is sleeping without any distress noted. Fall and safety precautions are in place. Call light is with pt and bed alarm is on.
--- NOTE | 2019-01-22 02:29 | NUR ---
PTT 50.8. No action needed per protocol. Heparin drip continues at 1100units (11ml/hr). Fall and safety precautions are in place.
--- NOTE | 2019-01-22 03:26 | NUR ---
Called Dr. Paul's exchange for elevated Troponin (0.212) and left message with National Basketball [employer] Scout 22, who stated Dr. Dalton is construction carpenters helper.
--- NOTE | 2019-01-22 04:00 | NUR ---
Heparin drip is infusing well in LH. Pt is sleeping comfortably in bed. Fall and safety precautions are in place.
--- NOTE | 2019-01-22 04:14 | NUR ---
paged second page for Dr Paul, dialed . s/w Steel Barrel Reamer 22, Dr Dalton is on-call.
--- NOTE | 2019-01-22 05:17 | NUR ---
paged third page for Dr Paul, dialed . s/w Control Systems Developer 22, Dr Dalton is on-call.
--- NOTE | 2019-01-22 05:20 | NUR ---
Dr. Dalton who was covering for Dr. Paul called back and critical lab result (Troponin 0.212) was relayed to him. No new orders given.
[2019-01-22] MEDS ORDERED: LEVOTHYROXINE SODIUM 0.075 MG TABLET PO SCH (07:00)
--- NOTE | 2019-01-22 07:06 | NUR ---
Pt is resting quietly in bed. All pt's needs were attended to. Heparin drip is infusing well in . Fall and safety precautions are in place. Will endorse to day shift nurse.
[2019-01-22 08:00] VITALS: BP_SYST 113
--- NOTE | 2019-01-22 08:00 | NUR ---
OPENING NOTE: RECEIVED REPORT FROM NOC RN. PATIENT RESTING IN BED WITH HOB ELEVATED. IV SITES INTACT AND PATENT, NO REDNESS/SWELLING TO SITE. NO ACUTE SIGNS OF RESP DISTRESS, NO SOB, BREATHING EVEN AND UNLABORED. BED AT LOWEST POSITION, CALL LIGHT IN REACH. EDUCATED PATIENT ON TODAYS PLAN OF CARE, PATIENT VERBALIZED UNDERSTANDING.
[2019-01-22] MEDS ORDERED: PANTOPRAZOLE SODIUM 40 MG TAB PO SCH (09:00)
[2019-01-22] MEDS ORDERED: SERTRALINE HCL 50 MG TABLET PO SCH (09:00)
[2019-01-22] MEDS ORDERED: FUROSEMIDE 80 MG TABLET PO SCH (09:00)
[2019-01-22] MEDS ORDERED: CHOLECALCIFEROL (VITAMIN D-3) 400 UNIT TABLET PO SCH (09:00)
[2019-01-22] MEDS ORDERED: FOLIC ACID 1 MG TABLET PO SCH (09:00)
[2019-01-22] MEDS: MIDODRINE HCL 5 MG TABLET (PROAMATINE) PO SCH ×2 (09:00→09:50)
[2019-01-22] MEDS: FERROUS SULFATE 325 MG TABLET.DR PO SCH ×2 (09:48→15:21)
[2019-01-22] MEDS: SENNOSIDES 8.6 MG TABLET PO SCH (09:49)
[2019-01-22] MEDS: CALCIUM ACETATE 667 MG CAP PO SCH ×2 (09:50→15:21)
[2019-01-22] MEDS: TACROLIMUS ANHYDROUS 0.5 MG CAPSULE (PROGRAF) PO SCH (09:51)
[2019-01-22] MEDS: MAGNESIUM AMINO ACID CHELATE PO SCH (09:52)
--- NOTE | 2019-01-22 12:00 | NUR ---
ROUNDING: NO CHANGE IN PATIENT STATUS. ALL NEEDS MET. NO ACUTE SIGNS OF RESP DISTRESS. WILL CONTINUE TO MONITOR.
[2019-01-22 12:40] VITALS: BP_SYST 101
--- NOTE | 2019-01-22 14:49 | NUR ---
Dietitian Recommendations * Recommend renal diet w/ Nepro BID (ONS provides 850 kcal/day, 38 gm protein/day) [place] Please refer to Nutrition Assessment for details. Addendum: 01/22/19 at [address] Amended: Links added.
[2019-01-22] MEDS ORDERED: [UNRECOGNIZED DRUG - OTHER] PO SCH (15:00)
[2019-01-22 16:41] VITALS: BP_SYST 112
[2019-01-22 16:42] VITALS: BP_SYST 112
[2019-01-22] MEDS ORDERED: [UNRECOGNIZED DRUG - REMARK] XX PRN (16:45)
[2019-01-22 16:50] VITALS: BP_SYST 112
== END 2019-01-22 16:55 | disposition home or self-care (01) | DRG 190 ==
LOC: SED 10:18 → STU 12:08
PROVIDERS: ADMIT Internal Medicine; ATTEND Internal Medicine
PROC: 0W993ZZ Drainage of Right Pleural Cavity, Percutaneous Approach (ICD-10-PCS; principal; 2019-01-22)
DX: I21.A1 Myocardial infarction type 2 (principal); J96.20 Acute and chronic respiratory failure, unspecified whether with hypoxia or hypercapnia; J91.8 Pleural effusion in other conditions classified elsewhere; E44.0 Moderate protein-calorie malnutrition; I13.2 Hypertensive heart and chronic kidney disease with heart failure and with stage 5 chronic kidney disease, or end stage renal disease; I95.9 Hypotension, unspecified; I50.33 Acute on chronic diastolic (congestive) heart failure; Z94.1 Heart transplant status; I27.20 Pulmonary hypertension, unspecified; I42.0 Dilated cardiomyopathy; N18.6 End stage renal disease; G89.4 Chronic pain syndrome; E78.5 Hyperlipidemia, unspecified; E03.9 Hypothyroidism, unspecified; M10.9 Gout, unspecified; K70.30 Alcoholic cirrhosis of liver without ascites; D64.9 Anemia, unspecified; F32.9 Major depressive disorder, single episode, unspecified; J44.9 Chronic obstructive pulmonary disease, unspecified; K21.9 Gastro-esophageal reflux disease without esophagitis; Z68.23 Body mass index [BMI] 23.0-23.9, adult; Z79.899 Other long term (current) drug therapy; Z79.01 Long term (current) use of anticoagulants; Z86.711 Personal history of pulmonary embolism; Z86.718 Personal history of other venous thrombosis and embolism; Z99.2 Dependence on renal dialysis
CPT/HCPCS: 32555; 36415; 36600; 71045; 80053; 82550-TC; 82803-TC; 83880; 84484; 85025; 85379; 85730-TC; 87081; 93005; 93970; 94640; 94760; 99285; C1729; G0378; J1644; J1940; J7507; J7620

== ENCOUNTER 2019-01-22 21:50 | Emergency (ER) | payer MEDICAID ==
[~2019-01-22] VITALS: Ht 180.3 cm; Wt 73.5 kg
[2019-01-22 21:55] VITALS: BP_SYST 119
[2019-01-22] MEDS ORDERED: BACITRACIN ZINC 15 GM TOPICAL OINTMENT TP ONE (23:00)
[2019-01-22 23:35] VITALS: BP_SYST 119
[2019-01-22] MEDS ORDERED: BACITRACIN 1 GM OINT TP ONE (23:36)
== END 2019-01-22 23:35 | disposition home or self-care (01) ==
LOC: SED 21:50
DX: S81.811A Laceration without foreign body, right lower leg, initial encounter (principal); Z86.79 Personal history of other diseases of the circulatory system; Z79.899 Other long term (current) drug therapy; W22.8XXA Striking against or struck by other objects, initial encounter; Y93.89 Activity, other specified; Y92.89 Other specified places as the place of occurrence of the external cause; Y99.8 Other external cause status
CPT/HCPCS: 99283

== ENCOUNTER 2019-06-02 15:00 | Inpatient (IN) | payer MEDICAID ==
[~2019-06-02] VITALS: Ht 180.3 cm; Wt 85.7 kg
--- NOTE | 2019-06-02 00:05 | NUR ---
Ambien 10mg given po per pt's request for sleep. Hemodialysis is in progress. Addendum: 06/03/19 at 0520 by Ysabel Alicia RN Pt declined bed alarm and was informed to call for assistance before getting out of bed if he feels dizzy or drowsy. Pt verbalized understanding. Addendum: 06/03/19 at 0521 by Ysabel Alicia RN Please disregard. Wrong date.
[2019-06-02 15:00] VITALS: BP_SYST 118
[~2019-06-02 15:00] MED LIST changes: -MAGN27TA2 PO
[2019-06-02 15:30] LABS: RED CELL DISTRIBUTION WIDTH 19.9 % (9.0-15.0)
--- NOTE | 2019-06-02 15:30 | NUR ---
AFTER HAVING BLOOD DRAWN, SENT TO BED #4A ND REPORT GIVEN TO SKIP
--- NOTE | 2019-06-02 15:35 | NUR ---
Patient is awake, alert, and oriented x4. Patient went in to [facility] and had labs drawn. MD called and notified him around 1430 and potassium is too high. Patient is a hemodialysis patient on TTHSAT, dialysis catheter in left upper chest. Patient did completed 3.5 hours of hemodialysis yesterday. Patient is asymptomatic.
[2019-06-02 15:38] LABS: HEMATOCRIT 38.8 % (36-54); HEMOGLOBIN 12.2 g/dL (14.0-18.0); MEAN CORPUSCULAR HEMOGLOBIN 26 pg (27-31); MEAN CORPUSCULAR HGB CONC 31 % (32-36); MEAN CORPUSCULAR VOLUME 84 fL (79.0-98.0); PLATELET COUNT (AUTO) 185 K/uL (130-430); RED BLOOD CELL COUNT(AUTO) 4.62 MIL/uL (4.2-6.2); WHITE BLOOD COUNT (AUTO) 6.2 K/uL (4.8-10.8)
--- NOTE | 2019-06-02 15:44 | NUR ---
ER Dr. Kendall at bedside examining patient.
[2019-06-02 15:54] LABS: CALCIUM 9.2 mg/dL (8.4-11.0); CREATININE 5.37 mg/dL (0.55-1.30); POTASSIUM 5.7 mmol/L (3.5-5.1)
[2019-06-02 16:00] LABS: INR 1.1 (0.80-1.20); PROTHROMBIN TIME 11.3 SECS (9.5-12.5)
[2019-06-02] MEDS ORDERED: SODIUM BICARBONATE 8.4% JECT 50 MEQ/50 ML SYRINGE IVP ONE (16:00)
[2019-06-02 16:03] LABS: ALBUMIN 3.1 g/dL (3.4-4.8); TOTAL BILIRUBIN 0.5 mg/dL (0.0-1.0)
[2019-06-02] MEDS ORDERED: SODIUM ZIRCONIUM CYCLOSILICATE 10 GM POWD.PACK PO ONE (16:45)
[2019-06-02 17:31] LABS: ATYPICAL LYMPHOCYTES % 4 % (0-0); BAND % (MANUAL) 4 % (0-6); BASOPHILS % (MANUAL) 0 % (0-2); EOSINOPHILS % (MANUAL) 0 % (0-7); LYMPHOCYTES % (MANUAL) 11 % (20-46); MONOCYTES % (MANUAL) 8 % (0-11)
--- NOTE | 2019-06-02 17:55 | NUR ---
Medication reconciliation completed with information provided by patient's . Any prior medication reconciliation on file was reviewed and corrected.
--- NOTE | 2019-06-02 18:03 | NUR ---
Patient will be admitted to care of Dr. Kramer. Admitted to telemetry unit. GILA Ricks to call back with room assignment. Belongings list completed. Complete and up to date summary report printed. SBAR report to be given at bedside with opportunity for questions.
[2019-06-02] MEDS ORDERED: PIPERACILLIN/TAZO 3.375 GM in NS 50 ML IV ONE (18:15)
[2019-06-02] MEDS ORDERED: PIPERACILLIN/TAZOBACTAM 3.375 GM/VIAL (ZOSYN) IV ONE (18:24)
--- NOTE | 2019-06-02 18:45 | NUR ---
Followed up with GILA Ricks at extension [id number] for telemetry bed. Patient assigned to room 124A, Mckenzie is the RN to get report on third shift lieutenant.
--- NOTE | 2019-06-02 19:07 | NUR ---
[facility]. Licensed nurse present. IV present no signs or symptoms of infiltration.
--- NOTE | 2019-06-02 19:12 | NUR ---
ADMISSION: The patient, ALDA RAGSDALE, 58 y/o, M admitted by SYDNEE MCHUGH MD, was given written information regarding hospital policies, unit procedures and contact persons. Valuables were checked and pt was oriented to his room and surrounding.
[2019-06-02 19:50] VITALS: BP_SYST 130
[2019-06-02 19:56] VITALS: BP_SYST 130
[2019-06-02] MEDS ORDERED: NON-FORMULARY MEDICATION (Apixaban (Eliquis) 5 MG) PO SCH (21:00)
[2019-06-02] MEDS ORDERED: CALCIUM ACETATE 667 MG CAP PO SCH (21:00)
[2019-06-02] MEDS: ISOSORBIDE MONONITRATE 30 MG TAB.ER.24H PO SCH (21:00)
[2019-06-02] MEDS ORDERED: CALCIUM ACETATE 667 MG PO SCH (21:00)
--- NOTE | 2019-06-02 21:08 | NUR ---
CONSULT: CONSULT CALLED FOR DR. PRITCHARD I SPOKE WITH SHAYLEE WALLACE REASON FOR CONSULT: ESRD REQUESTING CONSULT: DR. MCHUGH PURCHASING ADMINISTRATOR PHONE NUMBER: [phone]
--- NOTE | 2019-06-02 21:12 | NUR ---
Spoke with Dr. Perez regarding pt's admission and HD tonight. No new orders given.
--- NOTE | 2019-06-02 21:20 | NUR ---
Pt started on Hemodialysis by the Dialysis nurse.
--- NOTE | 2019-06-02 21:33 | NUR ---
PAGED I PAGED DR. MCHUGH @ 2132 I SPOKE WITH SHAYLEE EXCHANGE DR. MCHUGH CALLED BACK @ 2144
--- NOTE | 2019-06-02 22:05 | NUR ---
New orders obtained from Dr. Kramer. Pt requested some of his home medications' continuation, instead of being held by Dr. Kramer.
[2019-06-02] MEDS ORDERED: HEPARIN SODIUM, PORCINE 10,000 UNITS/ 10 ML VIAL MC SCH (23:00)
[2019-06-02] MEDS ORDERED: HEPARIN SODIUM, PORCINE 10,000 UNITS/ 10 ML VIAL MC ONE (23:00)
[2019-06-02] MEDS ORDERED: SENNOSIDES 8.6 MG TABLET PO SCH (23:00)
[2019-06-02] MEDS: TACROLIMUS ANHYDROUS 1 MG CAPSULE (PROGRAF) PO SCH (23:08)
[2019-06-02] MEDS: ATORVASTATIN 20 MG TABLET PO SCH (23:08)
[2019-06-02] MEDS: APIXABAN 2.5 MG TABLET PO SCH (23:10)
[2019-06-02] MEDS ORDERED: HEPARIN SODIUM,PORCINE 5000 UNITS/ML VIAL IVP SCH ×2 (23:30)
[2019-06-03] MEDS: ZOLPIDEM TARTRATE 5 MG TABLET PO PRN ×2 (00:05→21:28)
--- NOTE | 2019-06-03 00:05 | NUR ---
Ambien 10mg given po per pt's request for sleep. Hemodialysis is in progress. Pt declined bed alarm and was informed to call for assistance before getting out of bed if he feels dizzy or drowsy. Pt verbalized understanding.
--- NOTE | 2019-06-03 00:25 | NUR ---
Hemodialysis completed. Pt denies discomfort. Fall and safety precautions are in place.
--- NOTE | 2019-06-03 02:00 | NUR ---
Pt is sleeping without any distress noted. Call light is with pt and bed is in the lowest and locked positions.
--- NOTE | 2019-06-03 04:00 | NUR ---
Pt continues to sleep without any distress noted. Fall and safety precautions are in place.
[2019-06-03] MEDS: LEVOTHYROXINE SODIUM 0.075 MG TABLET PO SCH (06:08)
--- NOTE | 2019-06-03 06:39 | NUR ---
Pt is awake and resting quietly in bed. No c/o pain or discomfort. All pt's needs were attended to. Saline lock is intact in RH. Will endorse to day shift nurse.
[2019-06-03] MEDS: CALCIUM ACETATE 667 MG CAP PO SCH ×3 (08:21→17:16)
[2019-06-03] MEDS: FUROSEMIDE 80 MG TABLET PO SCH (08:23)
[2019-06-03] MEDS: APIXABAN 2.5 MG TABLET PO SCH ×2 (08:23→21:18)
[2019-06-03] MEDS: TACROLIMUS ANHYDROUS 1 MG CAPSULE (PROGRAF) PO SCH ×2 (08:24→21:18)
[2019-06-03 08:25] VITALS: BP_SYST 113
[2019-06-03] MEDS: SERTRALINE HCL 50 MG TABLET PO SCH (08:25)
[2019-06-03] MEDS: SENNOSIDES 8.6 MG TABLET PO SCH ×2 (08:25→21:19)
--- NOTE | 2019-06-03 08:25 | NUR ---
Routine Patient resting comfortably in bed with Dr. Kramer at bedside. Scheduled medications given per order. Patient denies any pain at this time. Patient stable.
[2019-06-03 09:12] LABS: CALCIUM 8.7 mg/dL (8.4-11.0); CREATININE 3.94 mg/dL (0.55-1.30); POTASSIUM 4.1 mmol/L (3.5-5.1)
--- NOTE | 2019-06-03 11:45 | NUR ---
Routine Patient sitting in chair with , Chayito at bedside. Patient denies any pain at this time. Patient stable.
[2019-06-03 12:15] VITALS: BP_SYST 110
--- NOTE | 2019-06-03 13:04 | NUR ---
Routine Patient sitting in chair at bedside with at bedside. Denies any pain at this time. Patient stable.
--- NOTE | 2019-06-03 15:06 | NUR ---
Routine Patient ambulating in hallway with .
--- NOTE | 2019-06-03 15:35 | NUR ---
Paged Dr. Perez with stat Chem 7 results. Per doctor, patient ok to discharge if ordered by primary doctor. 1545: Paged Dr. Kramer. Awaiting call back.
--- NOTE | 2019-06-03 15:55 | NUR ---
Dietitian Recommendations * Recommend continuing renal diet LP, RD Please refer to Nutrition Assessment for details. Addendum: 06/03/19 at [address] Amended: Links added.
[2019-06-03 16:34] VITALS: BP_SYST 109
--- NOTE | 2019-06-03 17:17 | NUR ---
Routine Patient resting comfortably in bed with and other family member at bedside. Scheduled medication given per order. Patient denies any pain at this time. Patient stable.
--- NOTE | 2019-06-03 17:45 | NUR ---
Received call from Dr. Kramer; CXR results ('no change') given to doctor. Per doctor, call Dr. Perez and inform him of results and that patient will stay another night.
--- NOTE | 2019-06-03 18:05 | NUR ---
Raphael Perez. Awaiting call back. Addendum: 06/03/19 at 1848 by Kiera Altman RN 1824: Received call back from Dr. Lewis. Informed doctor of CXR results and that, per Dr. Kramer, patient will stay another night in the hospital.
[2019-06-03 20:00] VITALS: BP_SYST 126
--- NOTE | 2019-06-03 20:00 | NUR ---
RECIEVED REPORT @ START OF SHIFT, A/O/X/4, RESPIRATIONS EVEN AND UNLABORED, ROOM AIR,14G S/L PATENT AND INTACT TO RIGHT HAND LEFT SUBCLAVIN PERMACATH PATENT AND INTACT,SR ON TELE MONITOR,DIALYSIS IN AM,SKIN INTACT, FAMILY @ BEDSIDE,DENIES PAIN, SR'S UP X'S 2, CALL LIGHT WITHIN REACH, BED IN LOW POSITION, WILL CONTINUE TO MONITOR,
[2019-06-03] MEDS: ATORVASTATIN 20 MG TABLET PO SCH (21:18)
[2019-06-03] MEDS: ISOSORBIDE MONONITRATE 30 MG TAB.ER.24H PO SCH (21:20)
--- NOTE | 2019-06-04 | NUR ---
RESTING QUIETLY IN BED WITH EYES CLOSED, EASILY AROUSED, DENIES PAIN, NO NOTED CHANGES OBSERVED IN CONDITION, WILL CONTINUE TO MONITOR.
[2019-06-04 00:41] VITALS: BP_SYST 120
--- NOTE | 2019-06-04 04:00 | NUR ---
SPOKE WITH DR. GRADY AND ORDER RECIEVED AND CARRIED FOR BENADRYL 50 MG PO FOR PATIENT'S C/O ITCHING. RESTING QUIETLY IN BED WITH EYES CLOSED, EASILY AROUSED, DENIES PAIN, WILL CONTINUE TO MONITOR FOR ANY OTHER S/S OF DISTRESS, CALL LIGHT WITHIN REACH, BED IN LOW POSITION, SR'S UP X'S 2. Addendum: 06/04/19 at 8797 by Aruna outboard motor inspector DATA INCORRECT FOR THIS PATIENT PLEASE DIS.REGARD
--- NOTE | 2019-06-04 04:00 | NUR ---
RESTING QUIETLY IN BED WITH EYES CLOSED, EASILY AROUSED, DENIES PAIN, NO NEW CHANGES OBSERVED WITH PATIENT @ THIS TIME, WILL CONTINUE TO MONITOR CLOSELY FOR ANY S/S OF DISTRESS.
--- NOTE | 2019-06-04 05:44 | NUR ---
SPEAKING WITH PATIENT AFTER OBSERVING HIM SITTING ON EDGE OF BED WITH HEAD IN HIS HANDS, STATES hE WAS NOT ABLE TO GET ANY GOOD SLEEP ALL NIGHT DUE TO THE UNPREDICTABLE BEHAVIOR OF PATIENT IN THE NEXT BED, NOW PATIENT IN ROOM BY HIMSELF AFTER OTHER SAID PATIENT REMOVED AND PLACE IN ANOTHER ROOM. WILL CONTINUE TO MONITOR FOR S/S OF DISTRESS.
[2019-06-04] MEDS: LEVOTHYROXINE SODIUM 0.075 MG TABLET PO SCH (06:24)
[2019-06-04 08:00] VITALS: BP_SYST 126
--- NOTE | 2019-06-04 08:00 | NUR ---
ASSUMPTION OF CARE: RECEIVED PT A/A/OX4, DX:RISK FOR FLUID VOLUME EXCESS, R/T PULMONARY EDEMA, ESRD, VSS, NO DISTRESS NOTED AT THIS TIME, PT RECEIVED H/D TX YESTERDAY AND SCHEDULED FOR TX SAT. PT ORIENTED TO CARE PLAN, BREATHING EASY AT THIS TIME, COLOR IS GOOD, PULSES PALPABLE, SKIN INTACT, NO C/O PAIN OR DISCOMFORT, ORIENTED TO CALL LIGHT, PLACED WITHIN REACH, WILL CONT' TO MONITOR AND ASSESS.
--- NOTE | 2019-06-04 09:45 | NUR ---
MINERAL SURVEYING TECHNICIAN: MORNING MEDS GIVEN, PER ORDERED BY Maurice, TOLERATED WELL, WILL CONT' TO MONITOR AND ASSESS.
[2019-06-04] MEDS: SENNOSIDES 8.6 MG TABLET PO SCH (09:58)
[2019-06-04] MEDS: CALCIUM ACETATE 667 MG CAP PO SCH ×2 (09:58→13:08)
[2019-06-04] MEDS: SERTRALINE HCL 50 MG TABLET PO SCH (09:59)
[2019-06-04] MEDS: APIXABAN 2.5 MG TABLET PO SCH (10:01)
[2019-06-04] MEDS: FUROSEMIDE 80 MG TABLET PO SCH (10:01)
[2019-06-04] MEDS: TACROLIMUS ANHYDROUS 1 MG CAPSULE (PROGRAF) PO SCH (10:09)
--- NOTE | 2019-06-04 12:00 | NUR ---
NURSES NOTES: PT AND FAMILY REMAIN AT BEDSIDE, PT HAS NO C/O ANY KIND AT THIS TIME, EXPRESS ONLY THAT HE WANTS TO BE DISCHARGED TO HOME, WILL CONT' TO [facility], WILL CONT' WITH POC.
[2019-06-04 12:30] VITALS: BP_SYST 137
[2019-06-04] MEDS ORDERED: TACROLIMUS ANHYDROUS 0.5 MG CAPSULE (PROGRAF) PO SCH (13:16)
[2019-06-04 14:50] VITALS: BP_SYST 127
--- NOTE | 2019-06-04 15:00 | NUR ---
DISCHARGE: PT DISCHARGED TO HOME, CONDITION IS STABLE, INSTRUCTIONS GIVEN FOR SCHEDULING NEXT APPT TIME AND DATE, VERBALIZES UNDERSTANDING, ALL BELONGINGS ACCOUNTED FOR AND RETURNED TO PT, FAMILY AT BEDSIDE TO TRANSPORT HOME, WILL ACCOMMODATE TO PARKING LOT VIA W/C.
== END 2019-06-04 13:20 | disposition home or self-care (01) | DRG 425 ==
LOC: SED 15:00 → STU 18:01
PROVIDERS: ADMIT Internal Medicine Hospice and Palliative Medicine; ATTEND Internal Medicine Hospice and Palliative Medicine
PROC: 5A1D70Z Performance of Urinary Filtration, Intermittent, Less than 6 Hours Per Day (ICD-10-PCS; principal; 2019-06-02)
DX: E87.5 Hyperkalemia (principal); J81.1 Chronic pulmonary edema; E11.22 Type 2 diabetes mellitus with diabetic chronic kidney disease; I12.0 Hypertensive chronic kidney disease with stage 5 chronic kidney disease or end stage renal disease; Z94.1 Heart transplant status; K72.90 Hepatic failure, unspecified without coma; I42.0 Dilated cardiomyopathy; N18.6 End stage renal disease; F32.9 Major depressive disorder, single episode, unspecified; K74.60 Unspecified cirrhosis of liver; M10.9 Gout, unspecified; D64.9 Anemia, unspecified; Z99.2 Dependence on renal dialysis; Z86.711 Personal history of pulmonary embolism; Z79.899 Other long term (current) drug therapy
CPT/HCPCS: 36415; 71045; 80048; 80053; 83605; 83880; 84484; 85007; 85027; 85610-TC; 85730-TC; 87040-TC; 87081; 90935; 93005; 96365; 96375; 99285; G0378; J1644; J2543; J7030; J7507